=== PATIENT | female | born 1940 | race Caucasian/White ===

== ENCOUNTER 2019-02-03 11:29 | Inpatient (IN) | payer MEDICARE, OTHER ==
[~2019-02-03] VITALS: Ht 152.4 cm; Wt 88.1 kg
[2019-02-03] MEDS ORDERED: fentaNYL PF VIAL 100 MCG/2 ML VIAL IV ONE ×2 (12:15→13:45)
[2019-02-03 12:30] LABS: BASO # 0.1 x10^3/uL (0.0-0.2); BASO % 0 % (0-3); EOS % 0 % (0-3); HEMATOCRIT 34.3 % (36.0-47.0); HEMOGLOBIN 11.3 g/dL (12.0-15.5); LYMPH # 0.8 x10^3/uL (1.0-4.8); LYMPH % 6 % (24-48); MEAN CORPUSCULAR HEMOGLOBIN 31 pg (25-35); MEAN CORPUSCULAR HGB CONC 33 g/dL (31-37); MEAN CORPUSCULAR VOLUME 94 fL (79-100); MONO # 0.8 x10^3/uL (0.0-1.1); MONO % 6 % (0-9); NEUT # 11.7 x10^3/uL (1.8-7.7); NEUT % 88 % (31-73); PLATELET COUNT 220 x10^3/uL (140-400); RED BLOOD COUNT 3.64 x10^6/uL (3.50-5.40); RED CELL DISTRIBUTION WIDTH 14.4 % (11.5-14.5); WHITE BLOOD COUNT 13.4 x10^3/uL (4.0-11.0)
[2019-02-03 12:39] LABS: CALCIUM 7.5 mg/dL (8.5-10.1); CREATININE 1.3 mg/dL (0.6-1.0); GFR 39.5; POTASSIUM 4.9 mmol/L (3.5-5.1)
[2019-02-03 12:44] LABS: ALBUMIN 3.1 g/dL (3.4-5.0); ALBUMIN/GLOBULIN RATIO 0.8 (1.0-1.7); MAGNESIUM 1.1 mg/dL (1.8-2.4); TOTAL BILIRUBIN 0.8 mg/dL (0.2-1.0); TOTAL PROTEIN 7.1 g/dL (6.4-8.2); URIC ACID 8.2 mg/dL (2.6-6.0)
[2019-02-03 12:54] LABS: PROTHROMBIN TIME PATIENT 15.6 SEC (11.7-14.0)
--- NOTE | 2019-02-03 13:08 | PHYS DOC ---
Past Medical History Past Medical History: Arthritis, CVA, GERD, High Cholesterol, Hypertension, Stroke Additional Past Medical Histor: blood clots, gout Past Surgical History: Appendectomy, Cholecystectomy, Hysterectomy, Knee Replacement (R), Other (thyroidectomy, ) Alcohol Use: None Drug Use: None Adult General Chief Complaint Chief Complaint: LOWER EXT PAIN HPI HPI Patient is a 78 year old female who presents to the emergency room with complaints of increased redness, and swelling in her left leg over the last 2 days. She denies any recent injury. She states that the rash just below her knee she thought was poison jordana. She reports tat she has had gout of her right foot recently and was taken off of her hydrochlorothiazide because of that. She denies any shortness of breath, cough, abdominal pain, nausea, vomiting, diarrhea, chest pain, or palpitations. She states that the pain in both of her lower extremities is a 10 out of 10 on the pain scale, she denies any alleviating factors, the pain increases with palpation and movement. Review of Systems Review of Systems Constitutional: Denies fever or chills [] Eyes: Denies change in visual acuity, redness, or eye pain [] HENT: Denies nasal congestion or sore throat [] Respiratory: Denies cough or shortness of breath [] Cardiovascular: No additional information not addressed in HPI [] GI: Denies abdominal pain, nausea, vomiting, bloody or diarrhea [] : Denies dysuria or hematuria [] Musculoskeletal: Denies back pain; see HPI Integument: Denies rash or skin lesions [] Neurologic: Denies headache, focal weakness or sensory changes [] Endocrine: Denies polyuria or polydipsia [] Complete systems were reviewed and found to be within normal limits, except as documented in this note. Current Medications Current Medications Current Medications Medications (Trade) Dose Ordered Sig/Kehinde Start Time Stop Time Status Last Admin Dose Admin Cefazolin Sodium 50 ml @ 100 mls/hr 1X ONCE 02/03/19 13:45 02/03/19 14:14 DC 02/03/19 13:57 100 MLS/HR Fentanyl Citrate (Fentanyl 2ml Vial) 50 mcg 1X ONCE 02/03/19 13:45 02/03/19 13:46 DC 02/03/19 13:39 50 MCG Labetalol HCl (Normodyne Iv Push) 10 mg 1X ONCE 02/03/19 13:15 02/03/19 13:16 DC 02/03/19 13:22 10 MG Allergies Allergies Allergies Coded Allergies Type Severity Reaction Last Updated Verified alendronate sodium Allergy Intermediate 02/03/19 Yes Physical Exam Physical Exam Constitutional: Well developed, well nourished, no acute distress, non-toxic appearance. [] HENT: Normocephalic, atraumatic, bilateral external ears normal, oropharynx moist, no oral exudates, nose normal. [] Eyes: PERRLA, EOMI, conjunctiva normal, no discharge. [] Neck: Normal range of motion, no tenderness, supple, no stridor. [] Cardiovascular:Heart rate regular rhythm Lungs & Thorax: Bilateral breath sounds clear to auscultation [] Abdomen: soft, no tenderness, no masses, no pulsatile masses. [] Skin: Warm, dry, no rash; erythema and warmth noted to anterior LLE and to R great toe Back: No tenderness Extremities: Bilateral lower extremity TTP with 1-2+ edema present, no deformities, no cyanosis, no clubbing, ROM intact Neurologic: Alert and oriented X 3, normal motor function, normal sensory function, no focal deficits noted. [] Psychologic: Affect normal, judgement normal, mood normal. [] Current Patient Data Vital Signs Vital Signs Date Time Temp Pulse Resp B/P (MAP) Pulse Ox O2 Delivery O2 Flow Rate FiO2 02/03/19 14:24 16 02/03/19 13:40 93 172/70 (104) 98 Room Air 02/03/19 13:05 99.3 99.3 Lab Values Laboratory Tests Test 02/03/19 12:07 02/03/19 12:35 White Blood Count 13.4 x10^3/uL (4.0-11.0) H Red Blood Count 3.64 x10^6/uL (3.50-5.40) Hemoglobin 11.3 g/dL (12.0-15.5) L Hematocrit 34.3 % (36.0-47.0) L Mean Corpuscular Volume 94 fL (79-100) Mean Corpuscular Hemoglobin 31 pg (25-35) Mean Corpuscular Hemoglobin Concent 33 g/dL (31-37) Red Cell Distribution Width 14.4 % (11.5-14.5) Platelet Count 220 x10^3/uL (140-400) Neutrophils (%) (Auto) 88 % (31-73) H Lymphocytes (%) (Auto) 6 % (24-48) L Monocytes (%) (Auto) 6 % (0-9) Eosinophils (%) (Auto) 0 % (0-3) Basophils (%) (Auto) 0 % (0-3) Neutrophils # (Auto) 11.7 x10^3/uL (1.8-7.7) H Lymphocytes # (Auto) 0.8 x10^3/uL (1.0-4.8) L Monocytes # (Auto) 0.8 x10^3/uL (0.0-1.1) Eosinophils # (Auto) 0.0 x10^3/uL (0.0-0.7) Basophils # (Auto) 0.1 x10^3/uL (0.0-0.2) Segmented Neutrophils % 86 % (35-66) H Band Neutrophils % 1 % (0-9) Lymphocytes % 7 % (24-48) L Monocytes % 5 % (0-10) Basophils % 1 % (0-3) Platelet Estimate Adequate (ADEQUATE) Sodium Level 142 mmol/L (136-145) Potassium Level 4.9 mmol/L (3.5-5.1) Chloride Level 107 mmol/L (98-107) Carbon Dioxide Level 24 mmol/L (21-32) Anion Gap 11 (6-14) Blood Urea Nitrogen 27 mg/dL (7-20) H Creatinine 1.3 mg/dL (0.6-1.0) H Estimated GFR (Cockcroft-Gault) 39.5 BUN/Creatinine Ratio 21 (6-20) H Glucose Level 110 mg/dL (70-99) H Uric Acid 8.2 mg/dL (2.6-6.0) H Calcium Level 7.5 mg/dL (8.5-10.1) L Magnesium Level 1.1 mg/dL (1.8-2.4) L Total Bilirubin 0.8 mg/dL (0.2-1.0) Aspartate Amino Transferase (AST) 18 U/L (15-37) Alanine Aminotransferase (ALT) 16 U/L (14-59) Alkaline Phosphatase 63 U/L (46-116) PZ-Hbe-R-Type Natriuretic Peptide 3101 pg/mL (0-449) H Total Protein 7.1 g/dL (6.4-8.2) Albumin 3.1 g/dL (3.4-5.0) L Albumin/Globulin Ratio 0.8 (1.0-1.7) L Prothrombin Time 15.6 SEC (11.7-14.0) H Prothrombin Time INR 1.3 (0.8-1.1) H Activated Partial Thromboplast Time 32 SEC (24-38) Lactic Acid Level 1.4 mmol/L (0.4-2.0) Laboratory Tests 02/03/19 12:07 Laboratory Tests 02/03/19 12:07 EKG EKG 1312 SR rate 86, no STEMI read by Dr. Andrea[] Radiology/Procedures Radiology/Procedures PROCEDURE: VENOUS LOWER EXT BILATERAL Bilateral lower extremity venous doppler ultrasound History: Bilateral leg pain and swelling Comparison: None Findings: Multiple grayscale, color, and duplex spectral analysis sonographic images were acquired of the bilateral lower extremity veins to evaluate for the presence of DVT. There is normal phasicity. Normal compression, color-flow, and augmentation is demonstrated from the bilateral common femoral to the popliteal veins. There is normal color flow of the proximal greater saphenous and profunda femoris veins. There is normal color flow of segments of the calf veins. Impression: 1. There is no evidence of deep venous thrombosis from the bilateral common femoral to the popliteal veins. PROCEDURE: CHEST AP ONLY CHEST AP ONLY Clinical Indication: Cough Comparison: 07/11/2018 two-view chest x-ray exam. Findings: Portable upright frontal view of the chest was obtained. Patient is rotated limiting assessment of the left costophrenic angle region. The cardiomediastinal silhouette is normal. Lungs are clear. There is no pneumothorax. No pleural effusion is appreciated. No acute bone abnormality. IMPRESSION: No acute cardiopulmonary process. No definite infiltrate. Consider lateral view for more complete assessment if clinically desired. [] Course & Med Decision Making Course & Med Decision Making Pertinent Labs and Imaging studies reviewed. (See chart for details) Dx: LLE cellulitis, HTN, CHF, R foot gout, acute renal insufficiency PT was given 1 gm of Ancef IV in the ER for cellulitis. She was also given 2 doses of 50 mcg of fentanyl, and 10 mg of Labetalol in the ER. CBC: WBC 13.4, Hgb 11.3, Hct 34.3; CMP: BUN 27, Iron [employer]er Blasting 1.3, glucose 110, uric acid 8.2, Ca 8.2, Mg 1.1, BNP 3101, albumin 3.1 otherwise unremarkable BLE doppler negative for DVT, CXR no acute findings. EKG normal 1347- Dr. Andrea discussed pt with Dr. Spence will admit to med/tele [] Dragon Disclaimer Dragon Disclaimer This electronic medical record was generated, in whole or in part, using a voice recognition dictation system. Departure Departure Impression: Primary Impression: Cellulitis of left lower extremity Additional Impressions: Hypertension CHF (congestive heart failure) Gout of right foot Acute on chronic renal insufficiency Disposition: ADMITTED INPATIENT Admitting Physician: MI peng) Condition: STABLE Problem Qualifiers Additional Impressions: Hypertension Hypertension type: essential hypertension Qualified Codes: I10 - Essential (primary) hypertension CHF (congestive heart failure) Heart failure type: unspecified Heart failure chronicity: unspecified Qualified Codes: I50.9 - Heart failure, unspecified Gout of right foot Gout etiology: unspecified cause Chronicity: unspecified Qualified Codes: M10.9 - Gout, unspecified FRANDY ROSS [employer]PORATE COMPLIANCE DIRECTOR Feb 03, 2019 13:08
[2019-02-03 13:12] LABS: % BANDS 1 % (0-9); % BASOS 1 % (0-3); % LYMPHS 7 % (24-48); % MONOS 5 % (0-10); % SEGS 86 % (35-66); PLT ESTIMATE ADEQUATE (ADEQUATE)
[2019-02-03] MEDS ORDERED: LABETALOL 20 MG/4 ML DISP.SYRIN. IVP ONE ×2 (13:15→15:00)
--- NOTE | 2019-02-03 13:16 | RAD ---
Bilateral lower extremity venous doppler ultrasound History: Bilateral leg pain and swelling Comparison: None Findings: Multiple grayscale, color, and duplex spectral analysis sonographic images were acquired of the bilateral lower extremity veins to evaluate for the presence of DVT. There is normal phasicity. Normal compression, color-flow, and augmentation is demonstrated from the bilateral common femoral to the popliteal veins. There is normal color flow of the proximal greater saphenous and profunda femoris veins. There is normal color flow of segments of the calf veins. Impression: 1. There is no evidence of deep venous thrombosis from the bilateral common femoral to the popliteal veins. Electronically signed by: Ishaan Spear MD (02/03/2019 1:13 PM) [facility]
--- NOTE | 2019-02-03 14:28 | RAD ---
CHEST AP ONLY Clinical Indication: Cough Comparison: 07/11/2018 two-view chest x-ray exam. Findings: Portable upright frontal view of the chest was obtained. Patient is rotated limiting assessment of the left costophrenic angle region. The cardiomediastinal silhouette is normal. Lungs are clear. There is no pneumothorax. No pleural effusion is appreciated. No acute bone abnormality. IMPRESSION: No acute cardiopulmonary process. No definite infiltrate. Consider lateral view for more complete assessment if clinically desired. Electronically signed by: Michele Lindsey MD (02/03/2019 2:25 PM) [facility]
[2019-02-03] MEDS ORDERED: fentaNYL PF VIAL 100 MCG/2 ML VIAL IV PRN (14:45)
[2019-02-03] MEDS ORDERED: ONDANSETRON PF 4 MG/2 ML VIAL. IV PRN (14:45)
[2019-02-03] MEDS ORDERED: TEMAZEPAM 7.5 MG CAPSULE PO PRN (14:45)
[2019-02-03] MEDS ORDERED: ACETAMINOPHEN 500 MG TABLET PO PRN (14:45)
[2019-02-03] MEDS ORDERED: CALCIUM CARBONATE 500 MG TAB.CHEW PO PRN (14:45)
[2019-02-03] MEDS ORDERED: LABETALOL 20 MG/4 ML DISP.SYRIN. IVP PRN (14:45)
[2019-02-03] MEDS ORDERED: cloNIDine HCL 0.1 MG TABLET PO PRN (14:45)
[2019-02-03] MEDS ORDERED: MAGNESIUM SULFATE 4GM 100 ML IV ONE (15:00)
[2019-02-03] MEDS ORDERED: IV NORMAL SALINE 1000ML BAG 1,000 ML IV ONE (15:00)
--- NOTE | 2019-02-03 15:09 | PDOC1 ---
History and Physical Date of Admission Date of Admission DATE: 02/03/19 TIME: 15:00 Identification/Chief Complaint Chief Complaint rt big toe wound Source Source: Caregiver, Chart review, Patient History of Present Illness History of Present Illness VEry pleasant 78 obese female who actually looks younger than stated age, rt bog toe treated as gout by PCP maybe a week ago, celebrex, pred 6 mgs taper, Got better but recurred so back here, She also fell, lives in [place], and has skin tear rt knee, LAbs WBC 11 but was recently on steroids, Creat 1,3 on olmesartan and hCTZ that was stopped by PCP bec of DONALDO, NOn toxic appearing, cant bear weight on that leg, usually can, no open skin breaks on that big toe, good pulses. Uric acid elevated 8. Will give pred, nsaid, colcrys, hold off arb , ns x 1 L, CONTROL BP - systolic 190s, then after labetolol 10 180s DW RN Edwin and color checker roving or yarn ON warf at home, unknown why Past Medical History Cardiovascular: HTN Past Surgical History Past Surgical History: Total knee replacement Family History Family History: No Significant Social History Smoke: No ALCOHOL: none Drugs: None Current Problem List Problem List Problems Medical Problems: (1) Acute on chronic renal insufficiency Status: Acute (2) Cellulitis of left lower extremity Status: Acute (3) CHF (congestive heart failure) Status: Acute (4) Gout of right foot Status: Acute (5) Hypertension Status: Acute Current Medications Current Medications Current Medications Fentanyl Citrate (Fentanyl 2ml Vial) 50 mcg 1X ONCE IV Last administered on 02/03/19at 12:24; Start 02/03/19 at 12:15; Stop 02/03/19 at 12:16; Status DC Labetalol HCl (Normodyne Iv Push) 10 mg 1X ONCE IVP Last administered on 02/03/19at 13:22; Start 02/03/19 at 13:15; Stop 02/03/19 at 13:16; Status DC Fentanyl Citrate (Fentanyl 2ml Vial) 50 mcg 1X ONCE IV Last administered on 02/03/19at 13:39; Start 02/03/19 at 13:45; Stop 02/03/19 at 13:46; Status DC Cefazolin Sodium 50 ml @ 100 mls/hr 1X ONCE IV Last administered on 02/03/19at 13:57; Start 02/03/19 at 13:45; Stop 02/03/19 at 14:14; Status DC Magnesium Sulfate 100 ml @ 25 mls/hr 1X ONCE IV ; Start 02/03/19 at 15:00; Stop 02/03/19 at 18:59 Celecoxib (CeleBREX) 100 mg BID PO ; Start 02/03/19 at 15:00 Labetalol HCl (Normodyne Iv Push) 20 mg 1X ONCE IVP ; Start 02/03/19 at 15:00; Stop 02/03/19 at 15:01 Clonidine HCl (Catapres) 0.1 mg PRN Q1HR PRN PO HYPERTENSION; Start 02/03/19 at 14:45; Stop 02/03/19 at 14:54; Status DC Acetaminophen (Tylenol) 500 mg PRN Q6HRS PRN PO MILD PAIN / TEMP; Start 02/03/19 at 14:45 Acetaminophen/ Codeine Phosphate (Tylenol #3) 1 tab PRN Q6HRS PRN PO MODERATE PAIN; Start 02/03/19 at 14:45 Temazepam (Restoril) 7.5 mg PRN QHS PRN PO INSOMNIA; Start 02/03/19 at 14:45 Calcium Carbonate/ Glycine (Tums) 500 mg PRN AFTMEALHC PRN PO INDIGESTION; Start 02/03/19 at 14:45 Ondansetron HCl (Zofran) 4 mg PRN Q6HRS PRN IV NAUSEA/VOMITING; Start 02/03/19 at 14:45 Fentanyl Citrate (Fentanyl 2ml Vial) 25 mcg PRN Q2HR PRN IV PAIN; Start 02/03/19 at 14:45 Sodium Chloride 1,000 ml @ 100 mls/hr 1X ONCE IV ; Start 02/03/19 at 15:00; Stop 02/04/19 at 00:59 Labetalol HCl (Normodyne Iv Push) 10 mg PRN Q2HR PRN IVP HYPERTENSION; Start 02/03/19 at 14:45 Allergies Allergies: Coded Allergies: alendronate sodium (Verified Allergy, Intermediate, 02/03/19) ROS Review of System no fevers, as per hpi, rest 14 pt neg Physical Exam General: Alert, Oriented X3, Cooperative, No acute distress HEENT: Atraumatic, PERRLA, EOMI Lungs: Clear to auscultation, Normal air movement Heart: S1S2, RRR, no thrills, no rubs, no gallops, no murmurs Cardiovascular: S1, S2 Breasts: Normal, Rt breast nml w/o mass, Lt breast nml w/o mass, Nipples normal Abdomen: Normal bowel sounds, Soft, No tenderness, No hepatosplenomegaly, No masses Rectal Exam: not examined Extremities: No clubbing Skin: Other (rt big toe, swollen, mildly red, left knee skin tear) Neuro: Normal gait, Normal speech, Strength at 5/5 X4 ext, Normal tone, Sensation intact, Cranial nerves 3-12 NL, Reflexes 2+ Psych/Mental Status: Mental status NL, Mood NL Vitals Vitals Vital Signs Date Time Temp Pulse Resp B/P (MAP) Pulse Ox O2 Delivery O2 Flow Rate FiO2 02/03/19 14:24 16 02/03/19 13:40 93 172/70 (104) 98 Room Air 02/03/19 13:05 99.3 99.3 Labs Labs Laboratory Tests Test 02/03/19 12:07 02/03/19 12:35 White Blood Count 13.4 x10^3/uL (4.0-11.0) Red Blood Count 3.64 x10^6/uL (3.50-5.40) Hemoglobin 11.3 g/dL (12.0-15.5) Hematocrit 34.3 % (36.0-47.0) Mean Corpuscular Volume 94 fL (79-100) Mean Corpuscular Hemoglobin 31 pg (25-35) Mean Corpuscular Hemoglobin Concent 33 g/dL (31-37) Red Cell Distribution Width 14.4 % (11.5-14.5) Platelet Count 220 x10^3/uL (140-400) Neutrophils (%) (Auto) 88 % (31-73) Lymphocytes (%) (Auto) 6 % (24-48) Monocytes (%) (Auto) 6 % (0-9) Eosinophils (%) (Auto) 0 % (0-3) Basophils (%) (Auto) 0 % (0-3) Neutrophils # (Auto) 11.7 x10^3/uL (1.8-7.7) Lymphocytes # (Auto) 0.8 x10^3/uL (1.0-4.8) Monocytes # (Auto) 0.8 x10^3/uL (0.0-1.1) Eosinophils # (Auto) 0.0 x10^3/uL (0.0-0.7) Basophils # (Auto) 0.1 x10^3/uL (0.0-0.2) Segmented Neutrophils % 86 % (35-66) Band Neutrophils % 1 % (0-9) Lymphocytes % 7 % (24-48) Monocytes % 5 % (0-10) Basophils % 1 % (0-3) Platelet Estimate Adequate (ADEQUATE) Sodium Level 142 mmol/L (136-145) Potassium Level 4.9 mmol/L (3.5-5.1) Chloride Level 107 mmol/L (98-107) Carbon Dioxide Level 24 mmol/L (21-32) Anion Gap 11 (6-14) Blood Urea Nitrogen 27 mg/dL (7-20) Creatinine 1.3 mg/dL (0.6-1.0) Estimated GFR (Cockcroft-Gault) 39.5 BUN/Creatinine Ratio 21 (6-20) Glucose Level 110 mg/dL (70-99) Uric Acid 8.2 mg/dL (2.6-6.0) Calcium Level 7.5 mg/dL (8.5-10.1) Magnesium Level 1.1 mg/dL (1.8-2.4) Total Bilirubin 0.8 mg/dL (0.2-1.0) Aspartate Amino Transf (AST/SGOT) 18 U/L (15-37) Alanine Aminotransferase (ALT/SGPT) 16 U/L (14-59) Alkaline Phosphatase 63 U/L (46-116) KM-Tft-V-Type Natriuretic Peptide 3101 pg/mL (0-449) Total Protein 7.1 g/dL (6.4-8.2) Albumin 3.1 g/dL (3.4-5.0) Albumin/Globulin Ratio 0.8 (1.0-1.7) Prothrombin Time 15.6 SEC (11.7-14.0) Prothromb Time International Ratio 1.3 (0.8-1.1) Activated Partial Thromboplast Time 32 SEC (24-38) Lactic Acid Level 1.4 mmol/L (0.4-2.0) Laboratory Tests Test 02/03/19 12:02/03/19 12:35 White Blood Count 13.4 x10^3/uL (4.0-11.0) Red Blood Count 3.64 x10^6/uL (3.50-5.40) Hemoglobin 11.3 g/dL (12.0-15.5) Hematocrit 34.3 % (36.0-47.0) Mean Corpuscular Volume 94 fL (79-100) Mean Corpuscular Hemoglobin 31 pg (25-35) Mean Corpuscular Hemoglobin Concent 33 g/dL (31-37) Red Cell Distribution Width 14.4 % (11.5-14.5) Platelet Count 220 x10^3/uL (140-400) Neutrophils (%) (Auto) 88 % (31-73) Lymphocytes (%) (Auto) 6 % (24-48) Monocytes (%) (Auto) 6 % (0-9) Eosinophils (%) (Auto) 0 % (0-3) Basophils (%) (Auto) 0 % (0-3) Neutrophils # (Auto) 11.7 x10^3/uL (1.8-7.7) Lymphocytes # (Auto) 0.8 x10^3/uL (1.0-4.8) Monocytes # (Auto) 0.8 x10^3/uL (0.0-1.1) Eosinophils # (Auto) 0.0 x10^3/uL (0.0-0.7) Basophils # (Auto) 0.1 x10^3/uL (0.0-0.2) Segmented Neutrophils % 86 % (35-66) Band Neutrophils % 1 % (0-9) Lymphocytes % 7 % (24-48) Monocytes % 5 % (0-10) Basophils % 1 % (0-3) Platelet Estimate Adequate (ADEQUATE) Sodium Level 142 mmol/L (136-145) Potassium Level 4.9 mmol/L (3.5-5.1) Chloride Level 107 mmol/L (98-107) Carbon Dioxide Level 24 mmol/L (21-32) Anion Gap 11 (6-14) Blood Urea Nitrogen 27 mg/dL (7-20) Creatinine 1.3 mg/dL (0.6-1.0) Estimated GFR (Cockcroft-Gault) 39.5 BUN/Creatinine Ratio 21 (6-20) Glucose Level 110 mg/dL (70-99) Uric Acid 8.2 mg/dL (2.6-6.0) Calcium Level 7.5 mg/dL (8.5-10.1) Magnesium Level 1.1 mg/dL (1.8-2.4) Total Bilirubin 0.8 mg/dL (0.2-1.0) Aspartate Amino Transf (AST/SGOT) 18 U/L (15-37) Alanine Aminotransferase (ALT/SGPT) 16 U/L (14-59) Alkaline Phosphatase 63 U/L (46-116) KK-Fgd-D-Type Natriuretic Peptide 3101 pg/mL (0-449) Total Protein 7.1 g/dL (6.4-8.2) Albumin 3.1 g/dL (3.4-5.0) Albumin/Globulin Ratio 0.8 (1.0-1.7) Prothrombin Time 15.6 SEC (11.7-14.0) Prothromb Time International Ratio 1.3 (0.8-1.1) Activated Partial Thromboplast Time 32 SEC (24-38) Lactic Acid Level 1.4 mmol/L (0.4-2.0) VTE Prophylaxis Ordered VTE Prophylaxis Devices: Yes VTE Pharmacological Prophylaxi: Yes Assessment/Plan Assessment/Plan 1. Likely rt big toe gout with mild underlying cellulitis - colcrys, nsaid po pred- i added po abx since retreatment after being treated for gout, just to cover for infection but looks more inflammatory than infection 2. MEchanical fall in [place] with rt knee skin tear- bactroban, local wound care 3. Obesity 4 Accel HTN - resume home med, LAbetolol now then prn 5. SUbtherapeutic iNR (on warf) - unknown reason, ask her, pharmacy to assist with dosing 6. HYPERthyroid on tapazole- as per PCP, cpm 7. NO DVT, normal CXR 8. CKD, - creat 1.4 might be her baseline, PCP stopped her HCTZ - hold olmesartan, i okayed low dose celebrex FULL CODE MICHELLE THOMAS MD Feb 03, 2019 15:09
[2019-02-03 15:20] VITALS: BP 170/63
[2019-02-03] MEDS ORDERED: COLCHICINE 0.6 MG TABLET PO ONE (15:30)
[2019-02-03] MEDS ORDERED: AMOXICILLIN/K CLAV 500/125MG TABLET. PO SCH (16:00)
--- NOTE | 2019-02-03 16:18 | NUR ---
Pharmacy Warfarin Dosing Note S:Pharmacy consulted to assist with anticoagulation therapy started with target INR: 2 -3 O:LEOBARDO OMALLEY is a 78 year old F with DVT/PE H/O DVTs LABS: Last INR: 1.3 Last HGB: 11.3 Last HCT: 34.3 Last PLT: 220 Last dose of given on at Previous Regimen: 0.5mg daily Vitamin K given: Drug Interaction Changes: Ongoing Drug Interactions: A:INR of 1.3 is below desired range. Target range for this patient is: 2 -3 P: Warfarin dose: 1 mg Today at 1600 Bridge Therapy: None Next INR due 11/04/18. Pharmacy anticoagulation service will continue to follow. CAMDEN NEUMANN [facility], 02/03/19 [id number]
[2019-02-03] MEDS: predniSONE 20 MG TABLET PO SCH (16:57)
[2019-02-03] MEDS: CELECOXIB 100 MG CAPSULE. PO SCH ×2 (16:57→20:49)
[2019-02-03] MEDS ORDERED: WARFARIN 1 MG TABLET. PO ONE (17:00)
[2019-02-03] MEDS: MULTIVITAMIN with MINERAL TABLET. PO SCH (17:04)
[2019-02-03] MEDS: MUPIROCIN 2 % TOPICAL CREAM 30GM TUBE. TP SCH ×2 (17:04→20:49)
[2019-02-03] MEDS: ASCORBIC ACID 500 MG TABLET PO SCH (17:05)
[2019-02-03 19:00] VITALS: BP 141/104
[2019-02-03] MEDS: methIMAzole 10 MG TABLET PO SCH (19:21)
[2019-02-03] MEDS: ACETAMINOPHEN/CODEINE 300/30MG TABLET. PO PRN (19:21)
[2019-02-03] MEDS: METOPROLOL TART IMMED RELEASE 50 MG TABLET. PO SCH (20:49)
[2019-02-03] MEDS: SIMVASTATIN 20 MG TABLET PO SCH (20:49)
[2019-02-03 22:59] VITALS: BP 123/57
[2019-02-04] MEDS: ACETAMINOPHEN/CODEINE 300/30MG TABLET. PO PRN ×3 (02:17→23:08)
[2019-02-04 02:46] VITALS: BP 146/63
[2019-02-04 05:05] LABS: BASO % 0 % (0-3); EOS % 0 % (0-3); HEMATOCRIT 31.8 % (36.0-47.0); HEMOGLOBIN 10.5 g/dL (12.0-15.5); LYMPH # 0.3 x10^3/uL (1.0-4.8); LYMPH % 3 % (24-48); MEAN CORPUSCULAR HEMOGLOBIN 31 pg (25-35); MEAN CORPUSCULAR HGB CONC 33 g/dL (31-37); MEAN CORPUSCULAR VOLUME 95 fL (79-100); MONO # 0.2 x10^3/uL (0.0-1.1); MONO % 2 % (0-9); NEUT # 9.1 x10^3/uL (1.8-7.7); NEUT % 94 % (31-73); PLATELET COUNT 164 x10^3/uL (140-400); RED BLOOD COUNT 3.36 x10^6/uL (3.50-5.40); RED CELL DISTRIBUTION WIDTH 13.9 % (11.5-14.5); WHITE BLOOD COUNT 9.7 x10^3/uL (4.0-11.0)
[2019-02-04 05:12] LABS: PROTHROMBIN TIME PATIENT 16.3 SEC (11.7-14.0)
[2019-02-04 05:33] LABS: CALCIUM 7.3 mg/dL (8.5-10.1); CREATININE 1.4 mg/dL (0.6-1.0); GFR 36.3; MAGNESIUM 2.7 mg/dL (1.8-2.4); POTASSIUM 4.7 mmol/L (3.5-5.1)
[2019-02-04 06:45] VITALS: BP 151/92
--- NOTE | 2019-02-04 08:17 | PDOC ---
PROGRESS NOTES History of Present Illness History of Present Illness VTE Prophylaxis Ordered VTE Prophylaxis Devices: Yes VTE Pharmacological Prophylaxi: Yes Assessment/Plan 1. Likely rt big toe gout //cellulitis - colcrys, 2. MEchanical fall in [place] with rt knee skin tear- bactroban, local wound care 3. Obesity 4 Accel HTN - resume home med, iv LAbetolol prn 5. SUbtherapeutic iNR (on warf) - 6. HYPERthyroid on tapazole- as per PCP, 7. NO DVT, normal CXR no evidence of deep venous thrombosis from the bilateral common femoral to the popliteal veins. 8. CKD stage 3 , - creat 1.4 d/c celebrex 9. chf plan wound care, pt/ot fall precautions iv rocephin 1 gm q 24 hrs follow renal function dvt prophylaxis 28 min pt exam, chart review, > 50% of time spent with exam, chart review, pt care coordination Vitals Vitals Vital Signs Date Time Temp Pulse Resp B/P (MAP) Pulse Ox O2 Delivery O2 Flow Rate FiO2 02/04/19 06:45 98.0 84 18 151/92 (111) 95 Room Air 98.0 Physical Exam General: Alert, Oriented X3, Cooperative, No acute distress Heart: Regular rate Lungs: Clear Abdomen: Normal bowel sounds, Soft, No tenderness, No hepatosplenomegaly, No masses Extremities: No clubbing Skin: Other (rt big toe, swollen, mildly red, left knee skin tear) Labs LABS Bilateral lower extremity venous doppler ultrasound History: Bilateral leg pain and swelling Comparison: None Findings: Multiple grayscale, color, and duplex spectral analysis sonographic images were acquired of the bilateral lower extremity veins to evaluate for the presence of DVT. There is normal phasicity. Normal compression, color-flow, and augmentation is demonstrated from the bilateral common femoral to the popliteal veins. There is normal color flow of the proximal greater saphenous and profunda femoris veins. There is normal color flow of segments of the calf veins. Impression: 1. There is no evidence of deep venous thrombosis from the bilateral common femoral to the popliteal veins. Electronically signed by: Ishaan Spear MD (02/03/2019 1:13 PM) [facility] Laboratory Tests Test 02/03/19 12:07 02/03/19 12:35 02/04/19 04:10 02/04/19 04:15 White Blood Count 13.4 x10^3/uL (4.0-11.0) 9.7 x10^3/uL (4.0-11.0) Red Blood Count 3.64 x10^6/uL (3.50-5.40) 3.36 x10^6/uL (3.50-5.40) Hemoglobin 11.3 g/dL (12.0-15.5) 10.5 g/dL (12.0-15.5) Hematocrit 34.3 % (36.0-47.0) 31.8 % (36.0-47.0) Mean Corpuscular Volume 94 fL (79-100) 95 fL (79-100) Mean Corpuscular Hemoglobin 31 pg (25-35) 31 pg (25-35) Mean Corpuscular Hemoglobin Concent 33 g/dL (31-37) 33 g/dL (31-37) Red Cell Distribution Width 14.4 % (11.5-14.5) 13.9 % (11.5-14.5) Platelet Count 220 x10^3/uL (140-400) 164 x10^3/uL (140-400) Neutrophils (%) (Auto) 88 % (31-73) 94 % (31-73) Lymphocytes (%) (Auto) 6 % (24-48) 3 % (24-48) Monocytes (%) (Auto) 6 % (0-9) 2 % (0-9) Eosinophils (%) (Auto) 0 % (0-3) 0 % (0-3) Basophils (%) (Auto) 0 % (0-3) 0 % (0-3) Neutrophils # (Auto) 11.7 x10^3/uL (1.8-7.7) 9.1 x10^3/uL (1.8-7.7) Lymphocytes # (Auto) 0.8 x10^3/uL (1.0-4.8) 0.3 x10^3/uL (1.0-4.8) Monocytes # (Auto) 0.8 x10^3/uL (0.0-1.1) 0.2 x10^3/uL (0.0-1.1) Eosinophils # (Auto) 0.0 x10^3/uL (0.0-0.7) 0.0 x10^3/uL (0.0-0.7) Basophils # (Auto) 0.1 x10^3/uL (0.0-0.2) 0.0 x10^3/uL (0.0-0.2) Segmented Neutrophils % 86 % (35-66) Band Neutrophils % 1 % (0-9) Lymphocytes % 7 % (24-48) Monocytes % 5 % (0-10) Basophils % 1 % (0-3) Platelet Estimate Adequate (ADEQUATE) Erythrocyte Sedimentation Rate 77 (0-25) Sodium Level 142 mmol/L (136-145) 142 mmol/L (136-145) Potassium Level 4.9 mmol/L (3.5-5.1) 4.7 mmol/L (3.5-5.1) Chloride Level 107 mmol/L (98-107) 108 mmol/L (98-107) Carbon Dioxide Level 24 mmol/L (21-32) 22 mmol/L (21-32) Anion Gap 11 (6-14) 12 (6-14) Blood Urea Nitrogen 27 mg/dL (7-20) 28 mg/dL (7-20) Creatinine 1.3 mg/dL (0.6-1.0) 1.4 mg/dL (0.6-1.0) Estimated GFR (Cockcroft-Gault) 39.5 36.3 BUN/Creatinine Ratio 21 (6-20) Glucose Level 110 mg/dL (70-99) 200 mg/dL (70-99) Uric Acid 8.2 mg/dL (2.6-6.0) Calcium Level 7.5 mg/dL (8.5-10.1) 7.3 mg/dL (8.5-10.1) Magnesium Level 1.1 mg/dL (1.8-2.4) 2.7 mg/dL (1.8-2.4) Total Bilirubin 0.8 mg/dL (0.2-1.0) Aspartate Amino Transf (AST/SGOT) 18 U/L (15-37) Alanine Aminotransferase (ALT/SGPT) 16 U/L (14-59) Alkaline Phosphatase 63 U/L (46-116) MU-Zkh-S-Type Natriuretic Peptide 3101 pg/mL (0-449) Total Protein 7.1 g/dL (6.4-8.2) Albumin 3.1 g/dL (3.4-5.0) Albumin/Globulin Ratio 0.8 (1.0-1.7) Prothrombin Time 15.6 SEC (11.7-14.0) 16.3 SEC (11.7-14.0) Prothromb Time International Ratio 1.3 (0.8-1.1) 1.3 (0.8-1.1) Activated Partial Thromboplast Time 32 SEC (24-38) Lactic Acid Level 1.4 mmol/L (0.4-2.0) Assessment and Plan Assessmemt and Plan Problems Medical Problems: (1) Acute on chronic renal insufficiency Status: Acute (2) Cellulitis of left lower extremity Status: Acute (3) CHF (congestive heart failure) Status: Acute (4) Gout of right foot Status: Acute (5) Hypertension Status: Acute Comment Review of Relevant I have reviewed the following items grupo (where applicable) has been applied. Labs Laboratory Tests Test 02/03/19 12:07 02/03/19 12:35 02/04/19 04:10 02/04/19 04:15 White Blood Count 13.4 x10^3/uL (4.0-11.0) 9.7 x10^3/uL (4.0-11.0) Red Blood Count 3.64 x10^6/uL (3.50-5.40) 3.36 x10^6/uL (3.50-5.40) Hemoglobin 11.3 g/dL (12.0-15.5) 10.5 g/dL (12.0-15.5) Hematocrit 34.3 % (36.0-47.0) 31.8 % (36.0-47.0) Mean Corpuscular Volume 94 fL (79-100) 95 fL (79-100) Mean Corpuscular Hemoglobin 31 pg (25-35) 31 pg (25-35) Mean Corpuscular Hemoglobin Concent 33 g/dL (31-37) 33 g/dL (31-37) Red Cell Distribution Width 14.4 % (11.5-14.5) 13.9 % (11.5-14.5) Platelet Count 220 x10^3/uL (140-400) 164 x10^3/uL (140-400) Neutrophils (%) (Auto) 88 % (31-73) 94 % (31-73) Lymphocytes (%) (Auto) 6 % (24-48) 3 % (24-48) Monocytes (%) (Auto) 6 % (0-9) 2 % (0-9) Eosinophils (%) (Auto) 0 % (0-3) 0 % (0-3) Basophils (%) (Auto) 0 % (0-3) 0 % (0-3) Neutrophils # (Auto) 11.7 x10^3/uL (1.8-7.7) 9.1 x10^3/uL (1.8-7.7) Lymphocytes # (Auto) 0.8 x10^3/uL (1.0-4.8) 0.3 x10^3/uL (1.0-4.8) Monocytes # (Auto) 0.8 x10^3/uL (0.0-1.1) 0.2 x10^3/uL (0.0-1.1) Eosinophils # (Auto) 0.0 x10^3/uL (0.0-0.7) 0.0 x10^3/uL (0.0-0.7) Basophils # (Auto) 0.1 x10^3/uL (0.0-0.2) 0.0 x10^3/uL (0.0-0.2) Segmented Neutrophils % 86 % (35-66) Band Neutrophils % 1 % (0-9) Lymphocytes % 7 % (24-48) Monocytes % 5 % (0-10) Basophils % 1 % (0-3) Platelet Estimate Adequate (ADEQUATE) Erythrocyte Sedimentation Rate 77 (0-25) Sodium Level 142 mmol/L (136-145) 142 mmol/L (136-145) Potassium Level 4.9 mmol/L (3.5-5.1) 4.7 mmol/L (3.5-5.1) Chloride Level 107 mmol/L (98-107) 108 mmol/L (98-107) Carbon Dioxide Level 24 mmol/L (21-32) 22 mmol/L (21-32) Anion Gap 11 (6-14) 12 (6-14) Blood Urea Nitrogen 27 mg/dL (7-20) 28 mg/dL (7-20) Creatinine 1.3 mg/dL (0.6-1.0) 1.4 mg/dL (0.6-1.0) Estimated GFR (Cockcroft-Gault) 39.5 36.3 BUN/Creatinine Ratio 21 (6-20) Glucose Level 110 mg/dL (70-99) 200 mg/dL (70-99) Uric Acid 8.2 mg/dL (2.6-6.0) Calcium Level 7.5 mg/dL (8.5-10.1) 7.3 mg/dL (8.5-10.1) Magnesium Level 1.1 mg/dL (1.8-2.4) 2.7 mg/dL (1.8-2.4) Total Bilirubin 0.8 mg/dL (0.2-1.0) Aspartate Amino Transf (AST/SGOT) 18 U/L (15-37) Alanine Aminotransferase (ALT/SGPT) 16 U/L (14-59) Alkaline Phosphatase 63 U/L (46-116) OU-Igb-E-Type Natriuretic Peptide 3101 pg/mL (0-449) Total Protein 7.1 g/dL (6.4-8.2) Albumin 3.1 g/dL (3.4-5.0) Albumin/Globulin Ratio 0.8 (1.0-1.7) Prothrombin Time 15.6 SEC (11.7-14.0) 16.3 SEC (11.7-14.0) Prothromb Time International Ratio 1.3 (0.8-1.1) 1.3 (0.8-1.1) Activated Partial Thromboplast Time 32 SEC (24-38) Lactic Acid Level 1.4 mmol/L (0.4-2.0) Laboratory Tests Test 02/03/19 12:07 02/03/19 12:35 02/04/19 04:10 02/04/19 04:15 White Blood Count 13.4 x10^3/uL (4.0-11.0) 9.7 x10^3/uL (4.0-11.0) Red Blood Count 3.64 x10^6/uL (3.50-5.40) 3.36 x10^6/uL (3.50-5.40) Hemoglobin 11.3 g/dL (12.0-15.5) 10.5 g/dL (12.0-15.5) Hematocrit 34.3 % (36.0-47.0) 31.8 % (36.0-47.0) Mean Corpuscular Volume 94 fL (79-100) 95 fL (79-100) Mean Corpuscular Hemoglobin 31 pg (25-35) 31 pg (25-35) Mean Corpuscular Hemoglobin Concent 33 g/dL (31-37) 33 g/dL (31-37) Red Cell Distribution Width 14.4 % (11.5-14.5) 13.9 % (11.5-14.5) Platelet Count 220 x10^3/uL (140-400) 164 x10^3/uL (140-400) Neutrophils (%) (Auto) 88 % (31-73) 94 % (31-73) Lymphocytes (%) (Auto) 6 % (24-48) 3 % (24-48) Monocytes (%) (Auto) 6 % (0-9) 2 % (0-9) Eosinophils (%) (Auto) 0 % (0-3) 0 % (0-3) Basophils (%) (Auto) 0 % (0-3) 0 % (0-3) Neutrophils # (Auto) 11.7 x10^3/uL (1.8-7.7) 9.1 x10^3/uL (1.8-7.7) Lymphocytes # (Auto) 0.8 x10^3/uL (1.0-4.8) 0.3 x10^3/uL (1.0-4.8) Monocytes # (Auto) 0.8 x10^3/uL (0.0-1.1) 0.2 x10^3/uL (0.0-1.1) Eosinophils # (Auto) 0.0 x10^3/uL (0.0-0.7) 0.0 x10^3/uL (0.0-0.7) Basophils # (Auto) 0.1 x10^3/uL (0.0-0.2) 0.0 x10^3/uL (0.0-0.2) Segmented Neutrophils % 86 % (35-66) Band Neutrophils % 1 % (0-9) Lymphocytes % 7 % (24-48) Monocytes % 5 % (0-10) Basophils % 1 % (0-3) Platelet Estimate Adequate (ADEQUATE) Erythrocyte Sedimentation Rate 77 (0-25) Sodium Level 142 mmol/L (136-145) 142 mmol/L (136-145) Potassium Level 4.9 mmol/L (3.5-5.1) 4.7 mmol/L (3.5-5.1) Chloride Level 107 mmol/L (98-107) 108 mmol/L (98-107) Carbon Dioxide Level 24 mmol/L (21-32) 22 mmol/L (21-32) Anion Gap 11 (6-14) 12 (6-14) Blood Urea Nitrogen 27 mg/dL (7-20) 28 mg/dL (7-20) Creatinine 1.3 mg/dL (0.6-1.0) 1.4 mg/dL (0.6-1.0) Estimated GFR (Cockcroft-Gault) 39.5 36.3 BUN/Creatinine Ratio 21 (6-20) Glucose Level 110 mg/dL (70-99) 200 mg/dL (70-99) Uric Acid 8.2 mg/dL (2.6-6.0) Calcium Level 7.5 mg/dL (8.5-10.1) 7.3 mg/dL (8.5-10.1) Magnesium Level 1.1 mg/dL (1.8-2.4) 2.7 mg/dL (1.8-2.4) Total Bilirubin 0.8 mg/dL (0.2-1.0) Aspartate Amino Transf (AST/SGOT) 18 U/L (15-37) Alanine Aminotransferase (ALT/SGPT) 16 U/L (14-59) Alkaline Phosphatase 63 U/L (46-116) MS-Xkw-L-Type Natriuretic Peptide 3101 pg/mL (0-449) Total Protein 7.1 g/dL (6.4-8.2) Albumin 3.1 g/dL (3.4-5.0) Albumin/Globulin Ratio 0.8 (1.0-1.7) Prothrombin Time 15.6 SEC (11.7-14.0) 16.3 SEC (11.7-14.0) Prothromb Time International Ratio 1.3 (0.8-1.1) 1.3 (0.8-1.1) Activated Partial Thromboplast Time 32 SEC (24-38) Lactic Acid Level 1.4 mmol/L (0.4-2.0) Medications Current Medications Fentanyl Citrate (Fentanyl 2ml Vial) 50 mcg 1X ONCE IV Last administered on 02/03/19at 12:24; Start 02/03/19 at 12:15; Stop 02/03/19 at 12:16; Status DC Labetalol HCl (Normodyne Iv Push) 10 mg 1X ONCE IVP Last administered on 02/03/19at 13:22; Start 02/03/19 at 13:15; Stop 02/03/19 at 13:16; Status DC Fentanyl Citrate (Fentanyl 2ml Vial) 50 mcg 1X ONCE IV Last administered on 02/03/19at 13:39; Start 02/03/19 at 13:45; Stop 02/03/19 at 13:46; Status DC Cefazolin Sodium 50 ml @ 100 mls/hr 1X ONCE IV Last administered on 02/03/19at 13:57; Start 02/03/19 at 13:45; Stop 02/03/19 at 14:14; Status DC Magnesium Sulfate 100 ml @ 25 mls/hr 1X ONCE IV Last administered on 02/03/19at 17:07; Start 02/03/19 at 15:00; Stop 02/03/19 at 18:59; Status DC Celecoxib (CeleBREX) 100 mg BID PO Last administered on 02/03/19at 20:50; Start 02/03/19 at 15:00 Labetalol HCl (Normodyne Iv Push) 20 mg 1X ONCE IVP Last administered on 02/03/19at 17:07; Start 02/03/19 at 15:00; Stop 02/03/19 at 15:01; Status DC Clonidine HCl (Catapres) 0.1 mg PRN Q1HR PRN PO HYPERTENSION; Start 02/03/19 at 14:45; Stop 02/03/19 at 14:54; Status DC Acetaminophen (Tylenol) 500 mg PRN Q6HRS PRN PO MILD PAIN / TEMP; Start 02/03/19 at 14:45 Acetaminophen/ Codeine Phosphate (Tylenol #3) 1 tab PRN Q6HRS PRN PO MODERATE PAIN Last administered on 02/04/19at 02:17; Start 02/03/19 at 14:45 Temazepam (Restoril) 7.5 mg PRN QHS PRN PO INSOMNIA; Start 02/03/19 at 14:45 Calcium Carbonate/ Glycine (Tums) 500 mg PRN AFTMEALHC PRN PO INDIGESTION; Start 02/03/19 at 14:45 Ondansetron HCl (Zofran) 4 mg PRN Q6HRS PRN IV NAUSEA/VOMITING; Start 02/03/19 at 14:45 Fentanyl Citrate (Fentanyl 2ml Vial) 25 mcg PRN Q2HR PRN IV PAIN Last administered on 02/03/19at 17:07; Start 02/03/19 at 14:45 Sodium Chloride 1,000 ml @ 100 mls/hr 1X ONCE IV ; Start 02/03/19 at 15:00; Stop 02/03/19 at 15:01; Status DC Labetalol HCl (Normodyne Iv Push) 10 mg PRN Q2HR PRN IVP HYPERTENSION; Start 02/03/19 at 14:45 Colchicine (Colcrys) 0.6 mg DAILY PO ; Start 02/04/19 at 09:00 Colchicine (Colcrys) 1.2 mg 1X ONCE PO Last administered on 02/03/19at 17:07; Start 02/03/19 at 15:30; Stop 02/03/19 at 15:31; Status DC Prednisone (Prednisone) 40 mg DAILY PO Last administered on 02/03/19at 17:07; Start 02/03/19 at 15:30 Mupirocin (Bactroban) 1 amara TID TP Last administered on 02/03/19at 20:50; Start 02/03/19 at 15:30 Warfarin Sodium (Coumadin Per Pharmacy) 1 each PRN DAILY PRN MC SEE COMMENTS Last administered on 02/03/19at 16:18; Start 02/03/19 at 15:00 Amoxicillin/ Clavulanate Potassium (Augmentin 500/ 125mg) 1 tab BID PO ; Start 02/03/19 at 16:00; Stop 02/03/19 at 15:10; Status DC Warfarin Sodium (Coumadin) 1 mg 1X WARF ONCE PO Last administered on 02/03/19at 17:07; Start 02/03/19 at 17:00; Stop 02/03/19 at 17:01; Status DC Methimazole (Tapazole) 5 mg DAILY PO Last administered on 02/03/19at 19:22; Start 02/03/19 at 17:30 Metoprolol Tartrate (Lopressor) 50 mg BID PO Last administered on 02/03/19at 20:50; Start 02/03/19 at 21:00 Simvastatin (Zocor) 20 mg HS PO Last administered on 02/03/19at 20:50; Start 02/03/19 at 21:00 Ascorbic Acid (Vitamin C) 1,000 mg DAILY PO ; Start 02/03/19 at 17:30 Multivitamins (Thera M Plus) 1 tab DAILY PO ; Start 02/03/19 at 17:30 Vitals/I & O Vital Sign - Last 24 Hours 02/03/19 02/03/19 02/03/19 02/03/19 11:32 12:24 13:05 13:15 Temp 98.9 99.3 98.9 99.3 Pulse 96 83 Resp 16 16 16 16 B/P (MAP) 210/80 (123) 220/88 (132) Pulse Ox 98 98 98 O2 Delivery Room Air Room Air Room Air 02/03/19 02/03/19 02/03/19 02/03/19 13:22 13:39 13:40 14:24 Pulse 89 93 Resp 16 18 16 B/P (MAP) 197/93 172/70 (104) Pulse Ox 98 O2 Delivery Room Air 02/03/19 02/03/19 02/03/19 02/03/19 15:20 17:07 17:07 18:01 Temp 98.6 98.6 Pulse 102 102 Resp 20 B/P (MAP) 170/63 (98) 170/63 Pulse Ox 97 97 O2 Delivery Room Air Room Air 02/03/19 02/03/19 02/03/19 02/03/19 18:46 19:00 19:22 20:18 Temp 98.8 98.8 Pulse 91 Resp 20 B/P (MAP) 141/104 (116) Pulse Ox 94 97 O2 Delivery Room Air Room Air Room Air Room Air 02/03/19 02/03/19 02/03/19 02/04/19 20:30 20:50 22:59 02:17 Temp 98.1 98.1 Pulse 91 73 Resp 18 19 18 B/P (MAP) 141/104 123/57 (79) Pulse Ox 97 97 97 O2 Delivery Room Air Room Air Room Air 02/04/19 02/04/19 02/04/19 02:46 04:43 06:45 Temp 98.8 98.0 98.8 98.0 Pulse 74 84 Resp 18 18 B/P (MAP) 146/63 (90) 151/92 (111) Pulse Ox 98 98 95 O2 Delivery Room Air Room Air Room Air Intake and Output 02/03/19 02/03/19 02/04/19 14:59 22:59 06:59 Intake Total 300 ml Output Total 100 ml Balance 300 ml -100 ml GEO RINCON MD Feb 04, 2019 08:17
[2019-02-04] MEDS: methIMAzole 10 MG TABLET PO SCH (08:22)
[2019-02-04] MEDS: COLCHICINE 0.6 MG TABLET PO SCH (08:22)
[2019-02-04] MEDS: ASCORBIC ACID 500 MG TABLET PO SCH (08:23)
[2019-02-04] MEDS: MULTIVITAMIN with MINERAL TABLET. PO SCH (08:23)
[2019-02-04] MEDS: predniSONE 20 MG TABLET PO SCH (08:23)
[2019-02-04] MEDS: METOPROLOL TART IMMED RELEASE 50 MG TABLET. PO SCH ×2 (08:23→21:02)
[2019-02-04] MEDS: MUPIROCIN 2 % TOPICAL CREAM 30GM TUBE. TP SCH ×3 (08:24→21:01)
[2019-02-04 11:00] VITALS: BP_SYST 146; BP_SYST 156; BP_DIAS 49; BP_DIAS 80
--- NOTE | 2019-02-04 11:46 | NUR ---
Pharmacy Warfarin Dosing Note S: Pharmacy consulted to assist with anticoagulation therapy started O: LEOBARDO OMALLEY is a 78 year old F with H/O DVTs LABS: Last INR: 1.3 Last HGB: 10.5 Last HCT: 31.8 Last PLT: 164 Last dose of 1 mg given on 02/03/19 at 1656 A:INR of 1.3 is below desired range. Target range for this patient is: 2 -3 P: Warfarin dose: 1 mg Today at 1600 Bridge Therapy: Enoxaparin 40 mg q24h Next INR due 02/05/19 AM Pharmacy anticoagulation service will continue to follow. OMAR THOMPSON RPH, 02/04/19 1149
--- NOTE | 2019-02-04 13:17 | EKG ---
[facility] [address] [place] [address] Test Date: 2019-02-03 Test Time: 13:12:08 Pat Name: LEOBARDO OMALLEY Department: Room: Gender: F Data Steward: : 1940 Requested By: FRANDY ROSS Order Number: [id number] Reading MD: Measurements Intervals [place] Rate: 86 P: 27 IA: 180 QRS: 12 QRSD: 86 T: 30 QT: 372 QTc: 448 Interpretive Statements SINUS RHYTHM NORMAL ECG No previous ECG available for comparison
[2019-02-04] MEDS: cefTRIAXone IV Push 1 GM VIAL. IVP SCH (13:20)
[2019-02-04] MEDS: ENOXAPARIN 40 MG/0.4 ML SYRINGE. SQ SCH (13:20)
[2019-02-04] MEDS: NYSTATIN TOPICAL POWDER 15GM BOTTLE. TP SCH ×3 (13:55→21:03)
--- NOTE | 2019-02-04 15:10 | RAD ---
Examination: FOOT RIGHT 3V History: Foot pain Comparison/Correlation: None Findings: Total 3 images of the right foot were obtained. Degenerative joint space narrowing is noted involving interphalangeal joints. Subchondral degenerative change involving the first metatarsophalangeal joint. Degenerative changes of the basis of the third through fifth metatarsal bones identified. Moderate-sized calcaneal spur is present. Vascular calcifications noted. Impression: Osteopenia and degenerative change. No acute process. Electronically signed by: Michele Lindsey MD (02/04/2019 3:06 PM) [facility]
[2019-02-04] MEDS ORDERED: WARFARIN 1 MG TABLET. PO ONE (16:00)
[2019-02-04 17:00] VITALS: BP 188/83
[2019-02-04 19:00] VITALS: BP 135/54
[2019-02-04] MEDS: SIMVASTATIN 20 MG TABLET PO SCH (21:01)
[2019-02-04] MEDS: LACTOBACILLUS RHAMNOSUS GG 1 CAPSULE. PO SCH (21:01)
[2019-02-04 23:00] VITALS: BP 132/53
[2019-02-05] VITALS (7 sets, daily range): BP systolic 115–195; BP diastolic 38–99
[2019-02-05 07:50] LABS: BASO % 0 % (0-3); EOS % 0 % (0-3); HEMOGLOBIN 10.1 g/dL (12.0-15.5); LYMPH # 0.7 x10^3/uL (1.0-4.8); LYMPH % 6 % (24-48); MEAN CORPUSCULAR HEMOGLOBIN 31 pg (25-35); MEAN CORPUSCULAR HGB CONC 33 g/dL (31-37); MEAN CORPUSCULAR VOLUME 94 fL (79-100); MONO # 0.6 x10^3/uL (0.0-1.1); MONO % 5 % (0-9); NEUT % 89 % (31-73); PLATELET COUNT 186 x10^3/uL (140-400); RED BLOOD COUNT 3.29 x10^6/uL (3.50-5.40); WHITE BLOOD COUNT 11.2 x10^3/uL (4.0-11.0)
[2019-02-05 08:00] LABS: PROTHROMBIN TIME PATIENT 18.6 SEC (11.7-14.0)
[2019-02-05 08:10] LABS: CREATININE 1.5 mg/dL (0.6-1.0); GFR 33.5
--- NOTE | 2019-02-05 08:39 | PDOC ---
PROGRESS NOTES Chief Complaint Chief Complaint Likely rt big toe gout //cellulitis - colcrys, Mechanical fall in [place] with rt knee skin tear- bactroban, local wound care Obesity Accel HTN - resume home med, iv LAbetolol prn Subtherapeutic iNR (on warf) - HYPERthyroid on tapazole- as per PCP, NO DVT, normal CXR no evidence of deep venous thrombosis from the bilateral common femoral to the popliteal veins. CKD stage 3 , - creat 1.4 d/c celebrex Chronic diastolic chf plan wound care, pt/ot fall precautions iv rocephin 1 gm q 24 hrs follow renal function dvt prophylaxis 28 min pt exam, chart review, > 50% of time spent with exam, chart review, pt care coordination History of Present Illness History of Present Illness 78 obese female who actually looks younger than stated age, rt bog toe treated as gout by PCP maybe a week ago, celebrex, pred 6 mgs taper, Got better but recurred so back here, She also fell, lives in [place], and has skin tear left knee. On chronic warfarin for multiple bilateral DVTs. Having nausea with colchicine. Improved with zofran. Still with exquisite pain, unable to bear weight on her right foot. Bilateral ankle pain today. Vitals Vitals Vital Signs Date Time Temp Pulse Resp B/P (MAP) Pulse Ox O2 Delivery O2 Flow Rate FiO2 02/05/19 07:30 97.9 63 20 160/54 (89) 98 Room Air 97.9 Physical Exam General: Alert, Oriented X3, Cooperative, No acute distress Heart: Regular rate Lungs: Clear Abdomen: Normal bowel sounds, Soft, No tenderness, No hepatosplenomegaly, No masses Extremities: No clubbing Skin: Other (rt big toe, swollen, mildly red, left knee skin tear) Labs LABS Laboratory Tests Test 02/05/19 07:11 White Blood Count 11.2 x10^3/uL (4.0-11.0) Red Blood Count 3.29 x10^6/uL (3.50-5.40) Hemoglobin 10.1 g/dL (12.0-15.5) Hematocrit 31.0 % (36.0-47.0) Mean Corpuscular Volume 94 fL (79-100) Mean Corpuscular Hemoglobin 31 pg (25-35) Mean Corpuscular Hemoglobin Concent 33 g/dL (31-37) Red Cell Distribution Width 14.0 % (11.5-14.5) Platelet Count 186 x10^3/uL (140-400) Neutrophils (%) (Auto) 89 % (31-73) Lymphocytes (%) (Auto) 6 % (24-48) Monocytes (%) (Auto) 5 % (0-9) Eosinophils (%) (Auto) 0 % (0-3) Basophils (%) (Auto) 0 % (0-3) Neutrophils # (Auto) 10.0 x10^3/uL (1.8-7.7) Lymphocytes # (Auto) 0.7 x10^3/uL (1.0-4.8) Monocytes # (Auto) 0.6 x10^3/uL (0.0-1.1) Eosinophils # (Auto) 0.0 x10^3/uL (0.0-0.7) Basophils # (Auto) 0.0 x10^3/uL (0.0-0.2) Prothrombin Time 18.6 SEC (11.7-14.0) Prothromb Time International Ratio 1.6 (0.8-1.1) Sodium Level 145 mmol/L (136-145) Potassium Level 5.0 mmol/L (3.5-5.1) Chloride Level 111 mmol/L (98-107) Carbon Dioxide Level 25 mmol/L (21-32) Anion Gap 9 (6-14) Blood Urea Nitrogen 35 mg/dL (7-20) Creatinine 1.5 mg/dL (0.6-1.0) Estimated GFR (Cockcroft-Gault) 33.5 Glucose Level 96 mg/dL (70-99) Calcium Level 7.0 mg/dL (8.5-10.1) Assessment and Plan Assessmemt and Plan Problems Medical Problems: (1) Acute on chronic renal insufficiency Status: Acute (2) Cellulitis of left lower extremity Status: Acute (3) CHF (congestive heart failure) Status: Acute (4) Gout of right foot Status: Acute (5) Hypertension Status: Acute Comment Review of Relevant I have reviewed the following items grupo (where applicable) has been applied. Labs Laboratory Tests Test 02/03/19 12:07 02/03/19 12:35 02/04/19 04:10 02/04/19 04:15 White Blood Count 13.4 x10^3/uL (4.0-11.0) 9.7 x10^3/uL (4.0-11.0) Red Blood Count 3.64 x10^6/uL (3.50-5.40) 3.36 x10^6/uL (3.50-5.40) Hemoglobin 11.3 g/dL (12.0-15.5) 10.5 g/dL (12.0-15.5) Hematocrit 34.3 % (36.0-47.0) 31.8 % (36.0-47.0) Mean Corpuscular Volume 94 fL (79-100) 95 fL (79-100) Mean Corpuscular Hemoglobin 31 pg (25-35) 31 pg (25-35) Mean Corpuscular Hemoglobin Concent 33 g/dL (31-37) 33 g/dL (31-37) Red Cell Distribution Width 14.4 % (11.5-14.5) 13.9 % (11.5-14.5) Platelet Count 220 x10^3/uL (140-400) 164 x10^3/uL (140-400) Neutrophils (%) (Auto) 88 % (31-73) 94 % (31-73) Lymphocytes (%) (Auto) 6 % (24-48) 3 % (24-48) Monocytes (%) (Auto) 6 % (0-9) 2 % (0-9) Eosinophils (%) (Auto) 0 % (0-3) 0 % (0-3) Basophils (%) (Auto) 0 % (0-3) 0 % (0-3) Neutrophils # (Auto) 11.7 x10^3/uL (1.8-7.7) 9.1 x10^3/uL (1.8-7.7) Lymphocytes # (Auto) 0.8 x10^3/uL (1.0-4.8) 0.3 x10^3/uL (1.0-4.8) Monocytes # (Auto) 0.8 x10^3/uL (0.0-1.1) 0.2 x10^3/uL (0.0-1.1) Eosinophils # (Auto) 0.0 x10^3/uL (0.0-0.7) 0.0 x10^3/uL (0.0-0.7) Basophils # (Auto) 0.1 x10^3/uL (0.0-0.2) 0.0 x10^3/uL (0.0-0.2) Segmented Neutrophils % 86 % (35-66) Band Neutrophils % 1 % (0-9) Lymphocytes % 7 % (24-48) Monocytes % 5 % (0-10) Basophils % 1 % (0-3) Platelet Estimate Adequate (ADEQUATE) Erythrocyte Sedimentation Rate 77 (0-25) Sodium Level 142 mmol/L (136-145) 142 mmol/L (136-145) Potassium Level 4.9 mmol/L (3.5-5.1) 4.7 mmol/L (3.5-5.1) Chloride Level 107 mmol/L (98-107) 108 mmol/L (98-107) Carbon Dioxide Level 24 mmol/L (21-32) 22 mmol/L (21-32) Anion Gap 11 (6-14) 12 (6-14) Blood Urea Nitrogen 27 mg/dL (7-20) 28 mg/dL (7-20) Creatinine 1.3 mg/dL (0.6-1.0) 1.4 mg/dL (0.6-1.0) Estimated GFR (Cockcroft-Gault) 39.5 36.3 BUN/Creatinine Ratio 21 (6-20) Glucose Level 110 mg/dL (70-99) 200 mg/dL (70-99) Uric Acid 8.2 mg/dL (2.6-6.0) 8.3 mg/dL (2.6-6.0) Calcium Level 7.5 mg/dL (8.5-10.1) 7.3 mg/dL (8.5-10.1) Magnesium Level 1.1 mg/dL (1.8-2.4) 2.7 mg/dL (1.8-2.4) Total Bilirubin 0.8 mg/dL (0.2-1.0) Aspartate Amino Transf (AST/SGOT) 18 U/L (15-37) Alanine Aminotransferase (ALT/SGPT) 16 U/L (14-59) Alkaline Phosphatase 63 U/L (46-116) QS-Rbg-A-Type Natriuretic Peptide 3101 pg/mL (0-449) Total Protein 7.1 g/dL (6.4-8.2) Albumin 3.1 g/dL (3.4-5.0) Albumin/Globulin Ratio 0.8 (1.0-1.7) Prothrombin Time 15.6 SEC (11.7-14.0) 16.3 SEC (11.7-14.0) Prothromb Time International Ratio 1.3 (0.8-1.1) 1.3 (0.8-1.1) Activated Partial Thromboplast Time 32 SEC (24-38) Lactic Acid Level 1.4 mmol/L (0.4-2.0) Test 02/05/19 07:11 White Blood Count 11.2 x10^3/uL (4.0-11.0) Red Blood Count 3.29 x10^6/uL (3.50-5.40) Hemoglobin 10.1 g/dL (12.0-15.5) Hematocrit 31.0 % (36.0-47.0) Mean Corpuscular Volume 94 fL (79-100) Mean Corpuscular Hemoglobin 31 pg (25-35) Mean Corpuscular Hemoglobin Concent 33 g/dL (31-37) Red Cell Distribution Width 14.0 % (11.5-14.5) Platelet Count 186 x10^3/uL (140-400) Neutrophils (%) (Auto) 89 % (31-73) Lymphocytes (%) (Auto) 6 % (24-48) Monocytes (%) (Auto) 5 % (0-9) Eosinophils (%) (Auto) 0 % (0-3) Basophils (%) (Auto) 0 % (0-3) Neutrophils # (Auto) 10.0 x10^3/uL (1.8-7.7) Lymphocytes # (Auto) 0.7 x10^3/uL (1.0-4.8) Monocytes # (Auto) 0.6 x10^3/uL (0.0-1.1) Eosinophils # (Auto) 0.0 x10^3/uL (0.0-0.7) Basophils # (Auto) 0.0 x10^3/uL (0.0-0.2) Prothrombin Time 18.6 SEC (11.7-14.0) Prothromb Time International Ratio 1.6 (0.8-1.1) Sodium Level 145 mmol/L (136-145) Potassium Level 5.0 mmol/L (3.5-5.1) Chloride Level 111 mmol/L (98-107) Carbon Dioxide Level 25 mmol/L (21-32) Anion Gap 9 (6-14) Blood Urea Nitrogen 35 mg/dL (7-20) Creatinine 1.5 mg/dL (0.6-1.0) Estimated GFR (Cockcroft-Gault) 33.5 Glucose Level 96 mg/dL (70-99) Calcium Level 7.0 mg/dL (8.5-10.1) Laboratory Tests Test 02/05/19 07:11 White Blood Count 11.2 x10^3/uL (4.0-11.0) Red Blood Count 3.29 x10^6/uL (3.50-5.40) Hemoglobin 10.1 g/dL (12.0-15.5) Hematocrit 31.0 % (36.0-47.0) Mean Corpuscular Volume 94 fL (79-100) Mean Corpuscular Hemoglobin 31 pg (25-35) Mean Corpuscular Hemoglobin Concent 33 g/dL (31-37) Red Cell Distribution Width 14.0 % (11.5-14.5) Platelet Count 186 x10^3/uL (140-400) Neutrophils (%) (Auto) 89 % (31-73) Lymphocytes (%) (Auto) 6 % (24-48) Monocytes (%) (Auto) 5 % (0-9) Eosinophils (%) (Auto) 0 % (0-3) Basophils (%) (Auto) 0 % (0-3) Neutrophils # (Auto) 10.0 x10^3/uL (1.8-7.7) Lymphocytes # (Auto) 0.7 x10^3/uL (1.0-4.8) Monocytes # (Auto) 0.6 x10^3/uL (0.0-1.1) Eosinophils # (Auto) 0.0 x10^3/uL (0.0-0.7) Basophils # (Auto) 0.0 x10^3/uL (0.0-0.2) Prothrombin Time 18.6 SEC (11.7-14.0) Prothromb Time International Ratio 1.6 (0.8-1.1) Sodium Level 145 mmol/L (136-145) Potassium Level 5.0 mmol/L (3.5-5.1) Chloride Level 111 mmol/L (98-107) Carbon Dioxide Level 25 mmol/L (21-32) Anion Gap 9 (6-14) Blood Urea Nitrogen 35 mg/dL (7-20) Creatinine 1.5 mg/dL (0.6-1.0) Estimated GFR (Cockcroft-Gault) 33.5 Glucose Level 96 mg/dL (70-99) Calcium Level 7.0 mg/dL (8.5-10.1) Medications Current Medications Fentanyl Citrate (Fentanyl 2ml Vial) 50 mcg 1X ONCE IV Last administered on 02/03/19at 12:24; Start 02/03/19 at 12:15; Stop 02/03/19 at 12:16; Status DC Labetalol HCl (Normodyne Iv Push) 10 mg 1X ONCE IVP Last administered on 02/03/19at 13:22; Start 02/03/19 at 13:15; Stop 02/03/19 at 13:16; Status DC Fentanyl Citrate (Fentanyl 2ml Vial) 50 mcg 1X ONCE IV Last administered on 02/03/19at 13:39; Start 02/03/19 at 13:45; Stop 02/03/19 at 13:46; Status DC Cefazolin Sodium 50 ml @ 100 mls/hr 1X ONCE IV Last administered on 02/03/19at 13:57; Start 02/03/19 at 13:45; Stop 02/03/19 at 14:14; Status DC Magnesium Sulfate 100 ml @ 25 mls/hr 1X ONCE IV Last administered on 02/03/19at 17:07; Start 02/03/19 at 15:00; Stop 02/03/19 at 18:59; Status DC Celecoxib (CeleBREX) 100 mg BID PO Last administered on 02/03/19at 20:50; Start 02/03/19 at 15:00; Stop 02/04/19 at 08:18; Status DC Labetalol HCl (Normodyne Iv Push) 20 mg 1X ONCE IVP Last administered on 02/03/19at 17:07; Start 02/03/19 at 15:00; Stop 02/03/19 at 15:01; Status DC Clonidine HCl (Catapres) 0.1 mg PRN Q1HR PRN PO HYPERTENSION; Start 02/03/19 at 14:45; Stop 02/03/19 at 14:54; Status DC Acetaminophen (Tylenol) 500 mg PRN Q6HRS PRN PO MILD PAIN / TEMP; Start 02/03/19 at 14:45 Acetaminophen/ Codeine Phosphate (Tylenol #3) 1 tab PRN Q6HRS PRN PO MODERATE PAIN Last administered on 02/04/19at 23:08; Start 02/03/19 at 14:45 Temazepam (Restoril) 7.5 mg PRN QHS PRN PO INSOMNIA; Start 02/03/19 at 14:45 Calcium Carbonate/ Glycine (Tums) 500 mg PRN AFTMEALHC PRN PO INDIGESTION; Start 02/03/19 at 14:45 Ondansetron HCl (Zofran) 4 mg PRN Q6HRS PRN IV NAUSEA/VOMITING Last administered on 02/04/19at 10:10; Start 02/03/19 at 14:45 Fentanyl Citrate (Fentanyl 2ml Vial) 25 mcg PRN Q2HR PRN IV PAIN Last administered on 02/03/19at 17:07; Start 02/03/19 at 14:45 Sodium Chloride 1,000 ml @ 100 mls/hr 1X ONCE IV ; Start 02/03/19 at 15:00; Stop 02/03/19 at 15:01; Status DC Labetalol HCl (Normodyne Iv Push) 10 mg PRN Q2HR PRN IVP HYPERTENSION; Start 02/03/19 at 14:45 Colchicine (Colcrys) 0.6 mg DAILY PO Last administered on 02/04/19at 08:24; Start 02/04/19 at 09:00 Colchicine (Colcrys) 1.2 mg 1X ONCE PO Last administered on 02/03/19at 17:07; Start 02/03/19 at 15:30; Stop 02/03/19 at 15:31; Status DC Prednisone (Prednisone) 40 mg DAILY PO Last administered on 02/04/19at 08:24; Start 02/03/19 at 15:30 Mupirocin (Bactroban) 1 amara TID TP Last administered on 02/04/19 21:03; Start 02/03/19 at 15:30 Warfarin Sodium (Coumadin Per Pharmacy) 1 each PRN DAILY PRN MC SEE COMMENTS Last administered on 02/04/19at 11:45; Start 02/03/19 at 15:00 Amoxicillin/ Clavulanate Potassium (Augmentin 500/ 125mg) 1 tab BID PO ; Start 02/03/19 at 16:00; Stop 02/03/19 at 15:10; Status DC Warfarin Sodium (Coumadin) 1 mg 1X WARF ONCE PO Last administered on 02/03/19 17:07; Start 02/03/19 at 17:00; Stop 02/03/19 at 17:01; Status DC Methimazole (Tapazole) 5 mg DAILY PO Last administered on 02/04/19 08:24; Start 02/03/19 at 17:30 Metoprolol Tartrate (Lopressor) 50 mg BID PO Last administered on 02/04/19 21:03; Start 02/03/19 at 21:00 Simvastatin (Zocor) 20 mg HS PO Last administered on 02/04/19 21:03; Start 02/03/19 at 21:00 Ascorbic Acid (Vitamin C) 1,000 mg DAILY PO Last administered on 02/04/19 08:24; Start 02/03/19 at 17:30 Multivitamins (Thera M Plus) 1 tab DAILY PO Last administered on 02/04/19 08:24; Start 02/03/19 at 17:30 Ceftriaxone Sodium (Rocephin) 1 gm Q24H IVP Last administered on 02/04/19 13:29; Start 02/04/19 at 12:00 Enoxaparin Sodium (Lovenox 40mg Syringe) 40 mg Q24H SQ Last administered on 02/04/19 13:29; Start 02/04/19 at 12:00 Warfarin Sodium (Coumadin) 1 mg 1X WARF ONCE PO Last administered on 02/04/19 16:49; Start 02/04/19 at 16:00; Stop 02/04/19 at 16:01; Status DC Lactobacillus Rhamnosus (Culturelle) 1 cap BID PO Last administered on 02/04/19 21:03; Start 02/04/19 at 21:00 Nystatin (Nystop) 1 amara QID TP Last administered on 02/04/19at 21:03; Start 02/04/19 at 14:00 Vitals/I & O Vital Sign - Last 24 Hours 02/04/19 02/04/19 02/04/19 02/04/19 11:00 16:49 17:00 18:11 Temp 98.4 97.9 98.4 97.9 Pulse 65 70 Resp 20 20 B/P (MAP) 146/49 (81) 188/83 (118) Pulse Ox 96 96 97 97 O2 Delivery Room Air Room Air Room Air Room Air 02/04/19 02/04/19 02/04/19 02/04/19 19:00 20:01 21:03 23:00 Temp 98.2 97.7 98.2 97.7 Pulse 73 73 73 Resp 16 16 B/P (MAP) 135/54 (81) 135/54 132/53 (79) Pulse Ox 96 98 O2 Delivery Room Air Room Air Room Air 02/04/19 02/05/19 02/05/19 02/05/19 23:08 00:23 03:00 07:30 Temp 98.6 97.9 98.6 97.9 Pulse 67 63 Resp 16 16 20 B/P (MAP) 115/38 (63) 160/54 (89) Pulse Ox 96 96 97 98 O2 Delivery Room Air Room Air Room Air Room Air Intake and Output 02/04/19 02/04/19 02/05/19 14:59 22:59 06:59 Intake Total 300 ml Balance 300 ml GISELE FRANCOIS MD Feb 05, 2019 08:39
[2019-02-05] MEDS: PANTOPRAZOLE 40 MG TABLET.DR. PO SCH (08:58)
[2019-02-05] MEDS: methIMAzole 10 MG TABLET PO SCH (08:58)
[2019-02-05] MEDS: LACTOBACILLUS RHAMNOSUS GG 1 CAPSULE. PO SCH ×2 (08:59→20:55)
[2019-02-05] MEDS: ONDANSETRON PF 4 MG/2 ML VIAL. IV PRN (08:59)
[2019-02-05] MEDS: predniSONE 20 MG TABLET PO SCH (09:00)
[2019-02-05] MEDS: ASCORBIC ACID 500 MG TABLET PO SCH (09:00)
[2019-02-05] MEDS: METOPROLOL TART IMMED RELEASE 50 MG TABLET. PO SCH ×2 (09:00→20:55)
[2019-02-05] MEDS: MULTIVITAMIN with MINERAL TABLET. PO SCH (09:00)
[2019-02-05] MEDS: COLCHICINE 0.6 MG TABLET PO SCH (09:00)
[2019-02-05] MEDS: NYSTATIN TOPICAL POWDER 15GM BOTTLE. TP SCH ×4 (09:01→20:55)
[2019-02-05] MEDS: ENOXAPARIN 40 MG/0.4 ML SYRINGE. SQ SCH (09:01)
[2019-02-05] MEDS: MUPIROCIN 2 % TOPICAL CREAM 30GM TUBE. TP SCH ×3 (09:02→20:55)
--- NOTE | 2019-02-05 11:36 | NUR ---
Pharmacy Warfarin Dosing Note S: Pharmacy consulted to assist with anticoagulation therapy started O: LEOBARDO OMALLEY is a 78 year old F with H/O DVTs Last INR: 1.6 Last HGB: 10.1 Last HCT: 31.0 Last PLT: 186 Last dose of 1 mg given on 02/04/19 at 1649 A:INR of 1.6 is below desired range. Target range for this patient is: 2 -3 P: Warfarin dose: 1 mg Today at 1600 Bridge Therapy: Enoxaparin 40 mg q24h Next INR due 02/06/19 AM Pharmacy anticoagulation service will continue to follow. OMAR THOMPSON [facility], 02/05/19 0018
[2019-02-05] MEDS: ACETAMINOPHEN/CODEINE 300/30MG TABLET. PO PRN ×2 (12:57→23:05)
[2019-02-05] MEDS: cefTRIAXone IV Push 1 GM VIAL. IVP SCH (12:57)
--- NOTE | 2019-02-05 14:20 | NUR ---
Wound Care WOund care consult for skin tear to left knee. Pt has no open wounds at this time. Pt has yeasty rash under pannus, nystatin powder recommended. WC will sign off, please reconsult if new wounds develop.
--- NOTE | 2019-02-05 15:56 | NUR ---
SW following pt for dc planning. Chart reviewed and d/w RN, Physician. Pt lives at [facility], , fax: [phone]. PT recommends Home health, OT recommends [facility] but pt did not participate with grooming/toileting. Per RN, Pt had completed grooming with [employer] today. SW spoke with pt and pt reports she has been living at [facility] and enjoys living there. Pt has formed good relationships at facility and has necessary DME. Discussed regarding home health options ([facility], [facility]) and pt reported she had heard about [facility] from her friend at her facility and would like to use them as well. Plan 1. SW phoned and faxed referral to [facility], Phone; [phone], fax: [phone]. 2. Anticipate pt will dc tomorrow with Addie . Will continue to follow. Addendum: 02/05/19 at 1606 by ROSENDA ABBOTT Updates faxed to [facility] and notified them pt is a possible discharge tomorrow.
[2019-02-05] MEDS ORDERED: WARFARIN 1 MG TABLET. PO ONE (16:00)
[2019-02-05] MEDS: SIMVASTATIN 20 MG TABLET PO SCH (20:55)
[2019-02-06 03:35] VITALS: BP 179/68
[2019-02-06 04:49] LABS: PROTHROMBIN TIME PATIENT 18.9 SEC (11.7-14.0)
[2019-02-06] MEDS: PANTOPRAZOLE 40 MG TABLET.DR. PO SCH (05:58)
[2019-02-06 07:54] VITALS: BP 168/59
--- NOTE | 2019-02-06 09:24 | PDOC ---
PROGRESS NOTES Chief Complaint Chief Complaint Likely rt big toe gout //cellulitis - colcrys, [place] with rt knee skin tear- bactroban, local wound care Obesity Accel HTN - resume home med, iv LAbetolol prn Subtherapeutic iNR (on warf) - HYPERthyroid on tapazole- as per PCP, NO DVT, normal CXR no evidence of deep venous thrombosis from the bilateral common femoral to the popliteal veins. CKD stage 3 , - creat 1.4 d/c celebrex Chronic diastolic chf plan wound care, pt/ot fall precautions iv rocephin 1 gm q 24 hrs follow renal function dvt prophylaxis 28 min pt exam, chart review, > 50% of time spent with exam, chart review, pt care coordination History of Present Illness History of Present Illness Ms Tilley is a 78 obese female who actually looks younger than stated age, rt bog toe treated as gout by PCP maybe a week ago, celebrex, pred 6 mgs taper, Got better but recurred so back here, She also fell, lives in [place], and has skin tear left knee. On chronic warfarin for multiple bilateral DVTs. Having nausea with colchicine. Improved with zofran. Still with pain able to bear weight on her right foot. Bilateral ankle pain today. Wants home health per PT and OT recommendations. Vitals Vitals Vital Signs Date Time Temp Pulse Resp B/P (MAP) Pulse Ox O2 Delivery O2 Flow Rate FiO2 02/06/19 07:54 97.4 65 18 168/59 (95) 99 Room Air 97.4 Physical Exam General: Alert, Oriented X3, Cooperative, No acute distress Heart: Regular rate Lungs: Clear Abdomen: Normal bowel sounds, Soft, No tenderness, No hepatosplenomegaly, No masses Extremities: No clubbing Skin: Other (rt big toe, swollen, mildly red, left knee skin tear) Labs LABS Laboratory Tests Test 02/06/19 04:15 Prothrombin Time 18.9 SEC (11.7-14.0) Prothromb Time International Ratio 1.6 (0.8-1.1) Assessment and Plan Assessmemt and Plan Problems Medical Problems: (1) Acute on chronic renal insufficiency Status: Acute (2) Cellulitis of left lower extremity Status: Acute (3) CHF (congestive heart failure) Status: Acute (4) Gout of right foot Status: Acute (5) Hypertension Status: Acute Comment Review of Relevant I have reviewed the following items grupo (where applicable) has been applied. Labs Laboratory Tests Test 02/05/19 07:11 02/06/19 04:15 White Blood Count 11.2 x10^3/uL (4.0-11.0) Red Blood Count 3.29 x10^6/uL (3.50-5.40) Hemoglobin 10.1 g/dL (12.0-15.5) Hematocrit 31.0 % (36.0-47.0) Mean Corpuscular Volume 94 fL (79-100) Mean Corpuscular Hemoglobin 31 pg (25-35) Mean Corpuscular Hemoglobin Concent 33 g/dL (31-37) Red Cell Distribution Width 14.0 % (11.5-14.5) Platelet Count 186 x10^3/uL (140-400) Neutrophils (%) (Auto) 89 % (31-73) Lymphocytes (%) (Auto) 6 % (24-48) Monocytes (%) (Auto) 5 % (0-9) Eosinophils (%) (Auto) 0 % (0-3) Basophils (%) (Auto) 0 % (0-3) Neutrophils # (Auto) 10.0 x10^3/uL (1.8-7.7) Lymphocytes # (Auto) 0.7 x10^3/uL (1.0-4.8) Monocytes # (Auto) 0.6 x10^3/uL (0.0-1.1) Eosinophils # (Auto) 0.0 x10^3/uL (0.0-0.7) Basophils # (Auto) 0.0 x10^3/uL (0.0-0.2) Prothrombin Time 18.6 SEC (11.7-14.0) 18.9 SEC (11.7-14.0) Prothromb Time International Ratio 1.6 (0.8-1.1) 1.6 (0.8-1.1) Sodium Level 145 mmol/L (136-145) Potassium Level 5.0 mmol/L (3.5-5.1) Chloride Level 111 mmol/L (98-107) Carbon Dioxide Level 25 mmol/L (21-32) Anion Gap 9 (6-14) Blood Urea Nitrogen 35 mg/dL (7-20) Creatinine 1.5 mg/dL (0.6-1.0) Estimated GFR (Cockcroft-Gault) 33.5 Glucose Level 96 mg/dL (70-99) Calcium Level 7.0 mg/dL (8.5-10.1) Anti-Streptolysin O Antibody 46.9 IU/mL (0.0-200.0) Laboratory Tests Test 02/06/19 04:15 Prothrombin Time 18.9 SEC (11.7-14.0) Prothromb Time International Ratio 1.6 (0.8-1.1) Medications Current Medications Fentanyl Citrate (Fentanyl 2ml Vial) 50 mcg 1X ONCE IV Last administered on 02/03/19at 12:24; Start 02/03/19 at 12:15; Stop 02/03/19 at 12:16; Status DC Labetalol HCl (Normodyne Iv Push) 10 mg 1X ONCE IVP Last administered on 02/03/19at 13:22; Start 02/03/19 at 13:15; Stop 02/03/19 at 13:16; Status DC Fentanyl Citrate (Fentanyl 2ml Vial) 50 mcg 1X ONCE IV Last administered on 02/03/19at 13:39; Start 02/03/19 at 13:45; Stop 02/03/19 at 13:46; Status DC Cefazolin Sodium 50 ml @ 100 mls/hr 1X ONCE IV Last administered on 02/03/19at 13:57; Start 02/03/19 at 13:45; Stop 02/03/19 at 14:14; Status DC Magnesium Sulfate 100 ml @ 25 mls/hr 1X ONCE IV Last administered on 02/03/19at 17:07; Start 02/03/19 at 15:00; Stop 02/03/19 at 18:59; Status DC Celecoxib (CeleBREX) 100 mg BID PO Last administered on 02/03/19at 20:50; Start 02/03/19 at 15:00; Stop 02/04/19 at 08:18; Status DC Labetalol HCl (Normodyne Iv Push) 20 mg 1X ONCE IVP Last administered on 02/03/19at 17:07; Start 02/03/19 at 15:00; Stop 02/03/19 at 15:01; Status DC Clonidine HCl (Catapres) 0.1 mg PRN Q1HR PRN PO HYPERTENSION; Start 02/03/19 at 14:45; Stop 02/03/19 at 14:54; Status DC Acetaminophen (Tylenol) 500 mg PRN Q6HRS PRN PO MILD PAIN / TEMP; Start 02/03/19 at 14:45 Acetaminophen/ Codeine Phosphate (Tylenol #3) 1 tab PRN Q6HRS PRN PO MODERATE PAIN Last administered on 02/05/19at 23:05; Start 02/03/19 at 14:45 Temazepam (Restoril) 7.5 mg PRN QHS PRN PO INSOMNIA; Start 02/03/19 at 14:45 Calcium Carbonate/ Glycine (Tums) 500 mg PRN AFTMEALHC PRN PO INDIGESTION; Start 02/03/19 at 14:45 Ondansetron HCl (Zofran) 4 mg PRN Q6HRS PRN IV NAUSEA/VOMITING Last administered on 02/04/19at 10:10; Start 02/03/19 at 14:45; Stop 02/05/19 at 08:50; Status DC Fentanyl Citrate (Fentanyl 2ml Vial) 25 mcg PRN Q2HR PRN IV PAIN Last administered on 02/03/19at 17:07; Start 02/03/19 at 14:45 Sodium Chloride 1,000 ml @ 100 mls/hr 1X ONCE IV ; Start 02/03/19 at 15:00; Stop 02/03/19 at 15:01; Status DC Labetalol HCl (Normodyne Iv Push) 10 mg PRN Q2HR PRN IVP HYPERTENSION; Start 02/03/19 at 14:45 Colchicine (Colcrys) 0.6 mg DAILY PO Last administered on 02/05/19at 09:02; Start 02/04/19 at 09:00 Colchicine (Colcrys) 1.2 mg 1X ONCE PO Last administered on 02/03/19at 17:07; Start 02/03/19 at 15:30; Stop 02/03/19 at 15:31; Status DC Prednisone (Prednisone) 40 mg DAILY PO Last administered on 02/05/19at 09:02; Start 02/03/19 at 15:30 Mupirocin (Bactroban) 1 amara TID TP Last administered on 02/05/19at 20:55; Start 02/03/19 at 15:30 Warfarin Sodium (Coumadin Per Pharmacy) 1 each PRN DAILY PRN MC SEE COMMENTS Last administered on 02/05/19 11:36; Start 02/03/19 at 15:00 Amoxicillin/ Clavulanate Potassium (Augmentin 500/ 125mg) 1 tab BID PO ; Start 02/03/19 at 16:00; Stop 02/03/19 at 15:10; Status DC Warfarin Sodium (Coumadin) 1 mg 1X WARF ONCE PO Last administered on 02/03/19at 17:07; Start 02/03/19 at 17:00; Stop 02/03/19 at 17:01; Status DC Methimazole (Tapazole) 5 mg DAILY PO Last administered on 02/05/19 09:02; Start 02/03/19 at 17:30 Metoprolol Tartrate (Lopressor) 50 mg BID PO Last administered on 02/05/19 20:55; Start 02/03/19 at 21:00 Simvastatin (Zocor) 20 mg HS PO Last administered on 02/05/19 20:55; Start 02/03/19 at 21:00 Ascorbic Acid (Vitamin C) 1,000 mg DAILY PO Last administered on 02/05/19 09:02; Start 02/03/19 at 17:30 Multivitamins (Thera M Plus) 1 tab DAILY PO Last administered on 02/05/19 09:02; Start 02/03/19 at 17:30 Ceftriaxone Sodium (Rocephin) 1 gm Q24H IVP Last administered on 02/05/19 12:59; Start 02/04/19 at 12:00 Enoxaparin Sodium (Lovenox 40mg Syringe) 40 mg Q24H SQ Last administered on 02/05/19 09:02; Start 02/04/19 at 12:00 Warfarin Sodium (Coumadin) 1 mg 1X WARF ONCE PO Last administered on 02/04/19 16:49; Start 02/04/19 at 16:00; Stop 02/04/19 at 16:01; Status DC Lactobacillus Rhamnosus (Culturelle) 1 cap BID PO Last administered on 20:55; Start 02/04/19 at 21:00 Nystatin (Nystop) 1 amara QID TP Last administered on 02/05/19 20:55; Start 02/04/19 at 14:00 Pantoprazole Sodium (Protonix) 40 mg DAILYAC PO Last administered on 02/06/19at 05:58; Start 02/05/19 at 08:45 Ondansetron HCl (Zofran) 4 mg PRN Q6HRS PRN IV NAUSEA/VOMITING Last administered on 02/05/19at 09:02; Start 02/05/19 at 08:45 Warfarin Sodium (Coumadin) 1 mg 1X WARF ONCE PO Last administered on 02/05/19at 17:06; Start 02/05/19 at 16:00; Stop 02/05/19 at 16:01; Status DC Vitals/I & O Vital Sign - Last 24 Hours 02/05/19 02/05/19 02/05/19 02/05/19 11:36 12:59 14:37 15:45 Temp 98.0 98.2 98.0 98.2 Pulse 63 62 Resp 20 20 B/P (MAP) 162/99 (120) 167/69 (101) Pulse Ox 98 98 98 96 O2 Delivery Room Air Room Air Room Air Room Air 02/05/19 02/05/19 02/05/19 02/05/19 19:55 20:00 20:02 20:55 Temp 97.7 97.7 Pulse 82 70 70 Resp 20 B/P (MAP) 195/71 (112) 143/52 (82) 143/52 Pulse Ox 94 O2 Delivery Room Air Room Air 02/05/19 02/05/19 02/06/19 02/06/19 23:05 23:50 03:35 05:59 Temp 98.0 97.7 98.0 97.7 Pulse 57 65 Resp 20 16 16 18 B/P (MAP) 130/54 (79) 179/68 (105) Pulse Ox 94 96 97 97 O2 Delivery Room Air Room Air Room Air Room Air 02/06/19 07:54 Temp 97.4 97.4 Pulse 65 Resp 18 B/P (MAP) 168/59 (95) Pulse Ox 99 O2 Delivery Room Air Intake and Output 02/05/19 02/05/19 02/06/19 15:00 23:00 07:00 Intake Total 240 ml 300 ml 380 ml Balance 240 ml 300 ml 380 ml GISELE FRANCOIS MD Feb 06, 2019 09:23
[2019-02-06] MEDS ORDERED: PRED20TA PO (09:26)
[2019-02-06] MEDS ORDERED: CEPH-264 PO (09:26)
[2019-02-06] MEDS ORDERED: COLC0.6T34 PO (09:26)
[2019-02-06] MEDS: MULTIVITAMIN with MINERAL TABLET. PO SCH (10:13)
[2019-02-06] MEDS: LACTOBACILLUS RHAMNOSUS GG 1 CAPSULE. PO SCH (10:13)
[2019-02-06] MEDS: ASCORBIC ACID 500 MG TABLET PO SCH (10:13)
[2019-02-06] MEDS: ONDANSETRON PF 4 MG/2 ML VIAL. IV PRN (10:13)
[2019-02-06] MEDS: predniSONE 20 MG TABLET PO SCH (10:14)
[2019-02-06] MEDS: METOPROLOL TART IMMED RELEASE 50 MG TABLET. PO SCH (10:14)
[2019-02-06] MEDS: methIMAzole 10 MG TABLET PO SCH (10:14)
[2019-02-06] MEDS: COLCHICINE 0.6 MG TABLET PO SCH (10:15)
--- NOTE | 2019-02-06 10:45 | PDOC3 ---
Discharge Summary Visit Information Date of Admission: Feb 03, 2019 Date of Discharge: Feb 06, 2019 Admitting Diagnosis: DONALDO on CKD, cellulitis of LLE Final Diagnosis Problems Medical Problems: (1) Acute on chronic renal insufficiency Status: Acute (2) Cellulitis of left lower extremity Status: Acute (3) CHF (congestive heart failure) Status: Acute (4) Gout of right foot Status: Acute (5) Hypertension Status: Acute Brief Hospital Course Allergies Allergies Coded Allergies Type Severity Reaction Last Updated Verified alendronate sodium Allergy Intermediate 02/03/19 Yes Vital Signs Vital Signs Date Time Temp Pulse Resp B/P (MAP) Pulse Ox O2 Delivery O2 Flow Rate FiO2 02/06/19 10:20 65 168/59 02/06/19 08:00 Room Air 02/06/19 07:54 97.4 18 99 97.4 Lab Results Laboratory Tests Test 02/05/19 07:11 02/06/19 04:15 White Blood Count 11.2 x10^3/uL (4.0-11.0) Red Blood Count 3.29 x10^6/uL (3.50-5.40) Hemoglobin 10.1 g/dL (12.0-15.5) Hematocrit 31.0 % (36.0-47.0) Mean Corpuscular Volume 94 fL (79-100) Mean Corpuscular Hemoglobin 31 pg (25-35) Mean Corpuscular Hemoglobin Concent 33 g/dL (31-37) Red Cell Distribution Width 14.0 % (11.5-14.5) Platelet Count 186 x10^3/uL (140-400) Neutrophils (%) (Auto) 89 % (31-73) Lymphocytes (%) (Auto) 6 % (24-48) Monocytes (%) (Auto) 5 % (0-9) Eosinophils (%) (Auto) 0 % (0-3) Basophils (%) (Auto) 0 % (0-3) Neutrophils # (Auto) 10.0 x10^3/uL (1.8-7.7) Lymphocytes # (Auto) 0.7 x10^3/uL (1.0-4.8) Monocytes # (Auto) 0.6 x10^3/uL (0.0-1.1) Eosinophils # (Auto) 0.0 x10^3/uL (0.0-0.7) Basophils # (Auto) 0.0 x10^3/uL (0.0-0.2) Prothrombin Time 18.6 SEC (11.7-14.0) 18.9 SEC (11.7-14.0) Prothromb Time International Ratio 1.6 (0.8-1.1) 1.6 (0.8-1.1) Sodium Level 145 mmol/L (136-145) Potassium Level 5.0 mmol/L (3.5-5.1) Chloride Level 111 mmol/L (98-107) Carbon Dioxide Level 25 mmol/L (21-32) Anion Gap 9 (6-14) Blood Urea Nitrogen 35 mg/dL (7-20) Creatinine 1.5 mg/dL (0.6-1.0) Estimated GFR (Cockcroft-Gault) 33.5 Glucose Level 96 mg/dL (70-99) Calcium Level 7.0 mg/dL (8.5-10.1) Anti-Streptolysin O Antibody 46.9 IU/mL (0.0-200.0) Laboratory Tests Test 02/06/19 04:15 Prothrombin Time 18.9 SEC (11.7-14.0) Prothromb Time International Ratio 1.6 (0.8-1.1) Brief Hospital Course Ms Tilley is a 78 obese female who actually looks younger than stated age, rt bog toe treated as gout by PCP maybe a week ago, celebrex, pred 6 mgs taper, Got better but recurred so back here, She also fell, lives in [place], and has skin tear left knee. On chronic warfarin for multiple bilateral DVTs. Having nausea with colchicine. Improved with zofran. Still with pain able to bear weight on her right foot. Bilateral ankle pain today. Wants home health per PT and OT recommendations. Likely rt big toe gout //cellulitis - colcrys, Mechanical fall in [place] with rt knee skin tear- bactroban, local wound care Obesity Accel HTN - resume home med, iv LAbetolol prn Subtherapeutic iNR (on warf) - HYPERthyroid on tapazole- as per PCP, NO DVT, normal CXR no evidence of deep venous thrombosis from the bilateral common femoral to the popliteal veins. CKD stage 3 , - creat 1.4 d/c celebrex Chronic diastolic chf Greater than 30 minutes spent on d/c Discharge Information Condition at Discharge: Improved Follow Up: Weeks Disposition/Orders: D/C to Home w/ HH Scheduled Cephalexin (Keflex) 500 Mg Capsule, 1 CAP PO BID for Cellulitis for 10 Days, #20 Prescribed by: GISELE FRANCOIS MD on 02/06/19925 Colchicine (Colcrys) 0.6 Mg Tablet, 0.6 MG PO DAILY for Gout flare for 10 Days, #10 Can substitute with any colchicine derivative for cost effectiveness Prescribed by: GISELE FRANCOIS MD on 02/06/19925 Prednisone (Prednisone) 20 Mg Tablet, 20 MG PO DAILY for Gout for 10 Days, #10 Prescribed by: GISELE FRANCOIS MD on 02/06/19925 GISELE FRANCOIS MD Feb 06, 2019 10:45
--- NOTE | 2019-02-06 10:47 | SNU/HH DC ---
DISCHARGE WITH HOME HEALTH DISCHARGE INFORMATION: Discharge Date: Feb 06, 2019 Final Diagnosis: Problems Medical Problems: (1) Acute on chronic renal insufficiency Status: Acute (2) Cellulitis of left lower extremity Status: Acute (3) CHF (congestive heart failure) Status: Acute (4) Gout of right foot Status: Acute (5) Hypertension Status: Acute Condition on Discharge: Stable CODE STATUS: Code Status: Full HOME HEALTH: Face to Face: I certify this patient is under my care and that I, or a nurse practitioner or physician's speech and language assistant working with me, had a face to face encounter that meets the physician face to face encounter requirements with this patient on 02/06/2019. Medical Complications: Falls, Other (Left leg cellulitis, gout) RN For Eval/Treatment: Yes Physical Therapy For: Evalulation/Treatment Occupational Therapy For: Evaluation/Treatment Pt Meets Homebound Status: Unsteady balance w/ amb, POST DISCHARGE ORDERS: Activity Instructions for Disc: Activity as tolerated Weight Bearing Status after Di: No restrictions, Full weight bearing DIET AFTER DISCHARGE: Regular CHECKS AFTER DISCHARGE: Checks after discharge: Check blood press - daily, Check your Temp as needed FOLLOW-UP: Warfarin Follow UP: INR on 02/08/2019 and weekly TREATMENT/EQUIPMENT ORDERS: Adaptive Equipment Issued: Front wheeled walker CERTIFICATION STATEMENT: Certification Statement: Certification Statement: Based on the above finding, I certify that this patient is confined to the home and needs intermittent fpc care, physical therapy and/or speech therapy, or continues to need occupational therapy.~ This patient is under my care, and I have initiated the establishment of the plan of care.~ This patient will be followed by myself or a community physician who will periodically review the plan of care. Home Meds Active Scripts Cephalexin (KEFLEX) 500 Mg Capsule, 1 CAP PO BID for Cellulitis for 10 Days, #20 CAP Prov:GISELE FRANCOIS MD 02/06/19 Prednisone (PREDNISONE) 20 Mg Tablet, 20 MG PO DAILY for Gout for 10 Days, #10 TAB Prov:GISELE FRANCOIS MD 02/06/19 Colchicine (COLCRYS) 0.6 Mg Tablet, 0.6 MG PO DAILY for Gout flare for 10 Days, #10 TAB Can substitute with any colchicine derivative for cost effectiveness Prov:GISELE FRANCOIS MD 02/06/19 GISELE FRANCOIS MD Feb 06, 2019 10:47
--- NOTE | 2019-02-06 11:18 | NUR ---
REPORT CALLED TO RAMÍREZ AT [facility] @ 1120.
[2019-02-06 11:23] VITALS: BP 149/53
[2019-02-06] MEDS: NYSTATIN TOPICAL POWDER 15GM BOTTLE. TP SCH (11:37)
[2019-02-06] MEDS: cefTRIAXone IV Push 1 GM VIAL. IVP SCH (11:37)
[2019-02-06] MEDS: MUPIROCIN 2 % TOPICAL CREAM 30GM TUBE. TP SCH (11:37)
[2019-02-06] MEDS: ENOXAPARIN 40 MG/0.4 ML SYRINGE. SQ SCH (11:38)
--- NOTE | 2019-02-06 11:43 | NUR ---
MILENA following pt. Orders faxed to [facility] and [facility] [place]. [facility] will start services tomorrow. MILENA arranged transport via central transport at 1330. Pt's choice and rights forms signed by pt and copies on chart. Elizabeth at [facility] notified. Pt agreeable with plans. Discussed with RN.
--- NOTE | 2019-02-06 13:46 | NUR ---
Discharge Note: LEOBARDO OMALLEY [address] [place] [address] Discharge instructions and discharge home medications reviewed with Patient and a copy given. All questions have been answered and understanding verbalized. The following instructions and handouts were given: follow up instructions, activity levels, and medication lists. Discontinued lines and drains: Peripheral IV intact. Patient discharged to Assisted Living with Ambulance Personnel via Wheelchair.
== END 2019-02-06 13:35 | disposition home health service (06) | DRG 683 ==
LOC: ER 11:29 → 6 SOUTH 13:54
PROVIDERS: ADMIT Internal Medicine; ATTEND Internal Medicine
DX: N17.9 Acute kidney failure, unspecified (principal); L03.116 Cellulitis of left lower limb; I50.32 Chronic diastolic (congestive) heart failure; I13.0 Hypertensive heart and chronic kidney disease with heart failure and stage 1 through stage 4 chronic kidney disease, or unspecified chronic kidney disease; N18.3 Chronic kidney disease, stage 3 (moderate); E66.9 Obesity, unspecified; E78.00 Pure hypercholesterolemia, unspecified; E89.0 Postprocedural hypothyroidism; M10.9 Gout, unspecified; M19.90 Unspecified osteoarthritis, unspecified site; R79.1 Abnormal coagulation profile; K21.9 Gastro-esophageal reflux disease without esophagitis; S81.011A Laceration without foreign body, right knee, initial encounter; Z79.01 Long term (current) use of anticoagulants; Z86.73 Personal history of transient ischemic attack (TIA), and cerebral infarction without residual deficits; Z90.710 Acquired absence of both cervix and uterus; Z96.651 Presence of right artificial knee joint; Z90.49 Acquired absence of other specified parts of digestive tract; W18.39XA Other fall on same level, initial encounter; Y93.89 Activity, other specified; Y92.89 Other specified places as the place of occurrence of the external cause; Y99.8 Other external cause status; Z68.37 Body mass index [BMI] 37.0-37.9, adult
CPT/HCPCS: 36415; 71045; 73630; 80048; 80053; 83605; 83735; 83880; 84550; 85007; 85025; 85610; 85651; 85730; 86060; 87641; 93005; 93970; 96365; 96375; 96376; J0690; J0696; J1650; J2405; J3010; J3475; J3490; J7512; 97110; 97530; 99285-25; G0378

== ENCOUNTER 2019-02-11 08:16 | Emergency (ER) | payer MEDICARE, OTHER ==
[~2019-02-11] VITALS: Ht 149.9 cm; Wt 88.0 kg
[~2019-02-11 08:16] MED LIST: CEPH-264 PO; COLC0.6T34 PO; PRED20TA PO
[2019-02-11] MEDS ORDERED: IV NORMAL SALINE 1000ML BAG 1,000 ML IV ONE (09:00)
--- NOTE | 2019-02-11 09:02 | PHYS DOC ---
Past Medical History Past Medical History: Arthritis, CVA, GERD, High Cholesterol, Hypertension, Stroke Additional Past Medical Histor: blood clots, gout Past Surgical History: Appendectomy, Cholecystectomy, Hysterectomy, Knee Replacement, Other Alcohol Use: None Drug Use: None Adult General Chief Complaint Chief Complaint: DIARRHEA HPI HPI Patient is a 78 year old Female who presents with just discharged from [facility] with gout and cellulitis. Patient has been on antibiotics. Patient states that since Tuesday she has had watery diarrhea. Patient states she's been trying to take Imodium no work for a little bit but then the diarrhea starts again. Patient states at times she'll have low abdominal cramping patient usually has to have diarrhea. Ambulatory with her walker. Alert and oriented. Patient is also hypertensive but states she took her medications this morning. Review of Systems Review of Systems Constitutional: Denies fever or chills [] GI: abdominal pain, nausea, denies vomiting, bloody stools. +diarrhea [] All other systems were reviewed and found to be within normal limits, except as documented in this note. Current Medications Current Medications Current Medications Medications (Trade) Dose Ordered Sig/Kehinde Start Time Stop Time Status Last Admin Dose Admin Clonidine HCl (Catapres) 0.1 mg 1X ONCE 02/11/19 10:30 02/11/19 10:31 DC 02/11/19 11:19 0.1 MG Sodium Chloride 1,000 ml @ 1,000 mls/hr 1X ONCE 02/11/19 09:00 02/11/19 09:59 DC 02/11/19 09:37 1,000 MLS/HR Allergies Allergies Allergies Coded Allergies Type Severity Reaction Last Updated Verified alendronate sodium Allergy Intermediate 02/03/19 Yes Physical Exam Physical Exam Constitutional: Well developed, well nourished, no acute distress, non-toxic appearance. [] HENT: Normocephalic, atraumatic, bilateral external ears normal, oropharynx moist, no oral exudates, nose normal. [] Eyes: PERRLA, EOMI, conjunctiva normal, no discharge. [] Neck: Normal range of motion, no tenderness, supple, no stridor. [] Cardiovascular:Heart rate regular rhythm, no murmur [] Lungs & Thorax: Bilateral breath sounds clear to auscultation [] Abdomen: Bowel sounds normal, soft, no tenderness, no masses, no pulsatile masses. [] Skin: Warm, dry, no erythema, no rash. [] Back: No tenderness, no CVA tenderness. [] Extremities: No tenderness, no cyanosis, no clubbing, ROM intact, no edema. [] Neurologic: Alert and oriented X 3, normal motor function, normal sensory function, no focal deficits noted. [] Psychologic: Affect normal, judgement normal, mood normal. Normal Physical Exam [] Current Patient Data Vital Signs Vital Signs Date Time Temp Pulse Resp B/P (MAP) Pulse Ox O2 Delivery O2 Flow Rate FiO2 02/11/19 12:03 97.4 60 18 152/54 (86) 97 Room Air 97.4 Lab Values Laboratory Tests Test 02/11/19 09:07 02/11/19 09:17 White Blood Count 9.7 x10^3/uL (4.0-11.0) Red Blood Count 3.82 x10^6/uL (3.50-5.40) Hemoglobin 11.9 g/dL (12.0-15.5) L Hematocrit 36.0 % (36.0-47.0) Mean Corpuscular Volume 94 fL (79-100) Mean Corpuscular Hemoglobin 31 pg (25-35) Mean Corpuscular Hemoglobin Concent 33 g/dL (31-37) Red Cell Distribution Width 14.3 % (11.5-14.5) Platelet Count 257 x10^3/uL (140-400) Neutrophils (%) (Auto) 94 % (31-73) H Lymphocytes (%) (Auto) 4 % (24-48) L Monocytes (%) (Auto) 1 % (0-9) Eosinophils (%) (Auto) 0 % (0-3) Basophils (%) (Auto) 0 % (0-3) Neutrophils # (Auto) 9.1 x10^3/uL (1.8-7.7) H Lymphocytes # (Auto) 0.4 x10^3/uL (1.0-4.8) L Monocytes # (Auto) 0.1 x10^3/uL (0.0-1.1) Eosinophils # (Auto) 0.0 x10^3/uL (0.0-0.7) Basophils # (Auto) 0.0 x10^3/uL (0.0-0.2) Platelet Estimate Pending Sodium Level 143 mmol/L (136-145) Potassium Level 4.7 mmol/L (3.5-5.1) Chloride Level 106 mmol/L (98-107) Carbon Dioxide Level 27 mmol/L (21-32) Anion Gap 10 (6-14) Blood Urea Nitrogen 29 mg/dL (7-20) H Creatinine 1.4 mg/dL (0.6-1.0) H Estimated GFR (Cockcroft-Gault) 36.3 BUN/Creatinine Ratio 21 (6-20) H Glucose Level 119 mg/dL (70-99) H Lactic Acid Level 1.5 mmol/L (0.4-2.0) Calcium Level 7.7 mg/dL (8.5-10.1) L Total Bilirubin 0.6 mg/dL (0.2-1.0) Aspartate Amino Transferase (AST) 17 U/L (15-37) Alanine Aminotransferase (ALT) 25 U/L (14-59) Alkaline Phosphatase 65 U/L (46-116) Troponin I Quantitative < 0.017 ng/mL (0.000-0.055) Total Protein 7.0 g/dL (6.4-8.2) Albumin 3.3 g/dL (3.4-5.0) L Albumin/Globulin Ratio 0.9 (1.0-1.7) L Urine Collection Type Unknown Urine Color Yellow Urine Clarity Clear Urine pH 7.0 Urine Specific [place] 1.010 Urine Protein >=300 mg/dL (NEG-TRACE) Urine Glucose (UA) Negative mg/dL (NEG) Urine Ketones (Stick) Negative mg/dL (NEG) Urine Blood Trace (NEG) Urine Nitrite Negative (NEG) Urine Bilirubin Negative (NEG) Urine Urobilinogen Dipstick 0.2 mg/dL (0.2 mg/dL) Urine Leukocyte Esterase Negative (NEG) Urine RBC 1-2 /HPF (0-2) Urine WBC 0 /HPF (0-4) Urine Squamous Epithelial Cells Few /LPF Urine Bacteria 0 /HPF (0-FEW) Laboratory Tests 02/11/19 09:07 Laboratory Tests 02/11/19 09:07 EKG EKG Sinus Rhythm with PVC, no STEMI[] Interpretation Time: [address] Jalloh Radiology/Procedures Radiology/Procedures [] Impressions: [facility] [address] [place] [address] IMAGING REPORT Signed PATIENT: LEOBARDO OMALLEY ACCOUNT: [id number] : 1940 LOCATION: ER AGE: 78 SEX: F EXAM STATUS: PRE ER ORD. PHYSICIAN: LUCAS STRICKLAND APRN REASON: DIARRHEA PROCEDURE: CT ABDOMEN PELVIS WO CONTRAST Exam performed: CT scan of the abdomen and pelvis without contrast. Clinical Indication: Diarrhea. Date of Service: 02/11/2019 comparison: None available Technique: Contiguous helical acquisitions are obtained through the abdomen and pelvis without IV contrast. Sagittal and coronal reformatted images are obtained and reviewed. CT abdomen and pelvis findings: Linear right basilar atelectasis, lung bases are otherwise essentially clear. Visualized heart is normal. Lack of IV contrast limits evaluation of abdominal viscera, however the liver, spleen and pancreas are normal. Gallbladder appears surgically absent. Both adrenal glands and bilateral kidneys are normal in size without hydronephrosis or nephrolithiasis. Aorta is normal in caliber without aneurysm. The small and large bowel loops are nondilated and unremarkable. Sigmoid diverticulosis without acute diverticulitis. The visualized portion of the appendix is unremarkable Distal ureters are nondilated. Urinary bladder is decompressed and thick walled. [Hysterectomy, no adnexal masses seen.] No free or focal fluid collections are identified. Scoliosis of the lumbar spine with rightward concavity. There is a left rectus sheath hematoma measuring 5.1 x 4.3 x 4.3 cm in maximum transverse, AP and craniocaudal dimension. Impression: Left inferior rectus sheath asymmetric high attenuation density measuring 5.1 x 4.2 x 4.3 cm likely a rectus sheath hematoma. Sigmoid diverticulosis without acute diverticulitis. Right basilar atelectasis. PQRS Compliance Statement: One or more of the following individualized dose reduction techniques were utilized for this examination: 1. Automated exposure control 2. Adjustment of the mA and/or kV according to patient size 3. Use of iterative reconstruction technique Electronically signed by: Bria Berrios MD (02/11/2019 11:17 AM) [facility] DICTATED and SIGNED BY: BRIA BERRIOS MD DATE: 02/11/197 Course & Med Decision Making Course & Med Decision Making Patient is a 78 year old Female who presents with just discharged from [facility] with gout and cellulitis. Patient has been on antibiotics. Patient states that since Tuesday she has had watery diarrhea. Patient states she's been trying to take Imodium no work for a little bit but then the diarrhea starts again. Patient states at times she'll have low abdominal cramping patient usually has to have diarrhea. Ambulatory with her walker. Alert and oriented. Patient is also hypertensive but states she took her medications this morning. Patient denies any pain at this time. Skin pink warm and dry. Speaks in full clear sentences. Denies chest pain, nausea, vomiting, fevers, body aches, shortness of breath, numbness or tingling, weakness. Patient states at times she feels nauseated but she has not been vomiting. Patient states she's been trying to drink a lot of water and eating some crackers. Lungs are clear to auscultation all lobes. Patient is hypertensive in the 200s over 80s. No extremity swelling. PERRLA. I have consulted with Dr Jalloh on this patient. Clonidine 0.1mg given for blood pressure. Patient is asymptomatic. 1200: Blood pressure is 150/54. Temperature is 97.4. Blood work unremarkable. Patient has not given a stool sample. Patient has not had any abdominal pain since she has been here and has not had any stools. Patient states she had 3 stool this AM. BUN and creatinine is elevated but looking back the levels are right around where she stays normally and actually a bit lower. CT ABD PELV done without contrast due to Kidney function shows: Left inferior rectus sheath asymmetric high attenuation density measuring 5.1 x 4.2 x 4.3 cm likely a rectus sheath hematoma. Sigmoid diverticulosis without acute diverticulitis. Right basilar atelectasis. I have spoken to Dr Laurent and given the patient is stable, the blood work is stable, she has no symptoms since she has been here, and is not dehydrated she will be discharged and follow up with primary care provider. Patient again has not had a stool and has not been able to give us a specimen. Estela Disclaimer Dragon Disclaimer This electronic medical record was generated, in whole or in part, using a voice recognition dictation system. Departure Departure Impression: Primary Impression: Diarrhea Disposition: HOME, SELF-CARE Condition: STABLE Referrals: LOI MONIQUE (PCP) Patient Instructions: Diarrhea Additional Instructions: Follow up with Primary care physician. Drink plenty of fluids. If abdominal pain worsens or you begin running a fever or vomiting, return to ED. Problem Qualifiers Primary Impression: Diarrhea Diarrhea type: unspecified type Qualified Codes: R19.7 - Diarrhea, unspecified LUCAS STRICKLAND APRN Feb 11, 2019 09:02
[2019-02-11 09:20] LABS: BASO % 0 % (0-3); EOS % 0 % (0-3); HEMOGLOBIN 11.9 g/dL (12.0-15.5); LYMPH # 0.4 x10^3/uL (1.0-4.8); LYMPH % 4 % (24-48); MEAN CORPUSCULAR HEMOGLOBIN 31 pg (25-35); MEAN CORPUSCULAR HGB CONC 33 g/dL (31-37); MEAN CORPUSCULAR VOLUME 94 fL (79-100); MONO # 0.1 x10^3/uL (0.0-1.1); MONO % 1 % (0-9); NEUT # 9.1 x10^3/uL (1.8-7.7); NEUT % 94 % (31-73); PLATELET COUNT 257 x10^3/uL (140-400); RED BLOOD COUNT 3.82 x10^6/uL (3.50-5.40); RED CELL DISTRIBUTION WIDTH 14.3 % (11.5-14.5); WHITE BLOOD COUNT 9.7 x10^3/uL (4.0-11.0)
[2019-02-11 09:31] LABS: CALCIUM 7.7 mg/dL (8.5-10.1); CREATININE 1.4 mg/dL (0.6-1.0); GFR 36.3; POTASSIUM 4.7 mmol/L (3.5-5.1)
[2019-02-11 09:42] LABS: BACTERIA,URINE 0 /HPF (0-FEW); BILIRUBIN,URINE NEGATIVE (NEG); CLARITY,URINE CLEAR; COLOR,URINE YELLOW; NITRITE,URINE NEGATIVE (NEG); PROTEIN,URINE >=300 mg/dL (NEG-TRACE); SQUAMOUS EPITHELIAL CELL,UR FEW /LPF; UROBILINOGEN,URINE 0.2 mg/dL (0.2 mg/dL); WBC,URINE 0 /HPF (0-4)
[2019-02-11 09:46] LABS: ALBUMIN 3.3 g/dL (3.4-5.0); ALBUMIN/GLOBULIN RATIO 0.9 (1.0-1.7); TOTAL BILIRUBIN 0.6 mg/dL (0.2-1.0)
[2019-02-11] MEDS ORDERED: cloNIDine HCL 0.1 MG TABLET PO ONE (10:30)
--- NOTE | 2019-02-11 11:20 | RAD ---
Exam performed: CT scan of the abdomen and pelvis without contrast. Clinical Indication: Diarrhea. Date of Service: 02/11/2019 comparison: None available Technique: Contiguous helical acquisitions are obtained through the abdomen and pelvis without IV contrast. Sagittal and coronal reformatted images are obtained and reviewed. CT abdomen and pelvis findings: Linear right basilar atelectasis, lung bases are otherwise essentially clear. Visualized heart is normal. Lack of IV contrast limits evaluation of abdominal viscera, however the liver, spleen and pancreas are normal. Gallbladder appears surgically absent. Both adrenal glands and bilateral kidneys are normal in size without hydronephrosis or nephrolithiasis. Aorta is normal in caliber without aneurysm. The small and large bowel loops are nondilated and unremarkable. Sigmoid diverticulosis without acute diverticulitis. The visualized portion of the appendix is unremarkable Distal ureters are nondilated. Urinary bladder is decompressed and thick walled. [Hysterectomy, no adnexal masses seen.] No free or focal fluid collections are identified. Scoliosis of the lumbar spine with rightward concavity. There is a left rectus sheath hematoma measuring 5.1 x 4.3 x 4.3 cm in maximum transverse, AP and craniocaudal dimension. Impression: Left inferior rectus sheath asymmetric high attenuation density measuring 5.1 x 4.2 x 4.3 cm likely a rectus sheath hematoma. Sigmoid diverticulosis without acute diverticulitis. Right basilar atelectasis. PQRS Compliance Statement: One or more of the following individualized dose reduction techniques were utilized for this examination: 1. Automated exposure control 2. Adjustment of the mA and/or kV according to patient size 3. Use of iterative reconstruction technique Electronically signed by: Bria Berrios MD (02/11/2019 11:17 AM) [facility]
[2019-02-11 13:09] LABS: % BANDS 3 % (0-9); % LYMPHS 2 % (24-48); % SEGS 95 % (35-66)
[2019-02-11 13:10] LABS: PLT ESTIMATE ADEQUATE (ADEQUATE)
[2019-02-11 13:25] VITALS: BP 174/72
--- NOTE | 2019-02-12 06:26 | EKG ---
[facility] [address] [place] [address] Test Date: 2019-02-11 Test Time: 09:21:06 Pat Name: LEOBARDO OMALLEY Department: Room: Gender: F Business Banking Representative: : 1940 Requested By: LUCAS STRICKLAND Order Number: [id number] Reading MD: Measurements Intervals [place] Rate: 59 P: 27 IA: 176 QRS: 20 QRSD: 90 T: 38 QT: 442 QTc: 442 Interpretive Statements SINUS RHYTHM VENTRICULAR PREMATURE COMPLEX(ES) T ABNORMALITY IN HIGH LATERAL LEADS ABNORMAL ECG No previous ECG available for comparison
== END 2019-02-11 13:25 | disposition home or self-care (01) ==
LOC: ER 08:16
DX: R19.7 Diarrhea, unspecified (principal); R10.9 Unspecified abdominal pain; R11.0 Nausea; M19.90 Unspecified osteoarthritis, unspecified site; K21.9 Gastro-esophageal reflux disease without esophagitis; E78.00 Pure hypercholesterolemia, unspecified; I10 Essential (primary) hypertension; Z86.73 Personal history of transient ischemic attack (TIA), and cerebral infarction without residual deficits; Z90.89 Acquired absence of other organs; Z90.49 Acquired absence of other specified parts of digestive tract; Z90.710 Acquired absence of both cervix and uterus; Z96.659 Presence of unspecified artificial knee joint; Z88.8 Allergy status to other drugs, medicaments and biological substances
CPT/HCPCS: 36415; 74176; 80053; 81001; 83605; 84484; 85007; 85025; 93005; 96360; 99285; J7030

== ENCOUNTER 2019-02-19 10:10 | Emergency (ER) | payer MEDICARE, OTHER ==
[~2019-02-19] VITALS: Ht 154.9 cm; Wt 86.2 kg
--- NOTE | 2019-02-19 11:00 | RAD ---
Examination: PORTABLE CHEST 1V History: Shortness of breath Comparison/Correlation: 02/03/2019 AP view of the chest Findings: Portable upright frontal view of the chest was obtained. Heart size and pulmonary vasculature are normal. No infiltrate, pneumothorax or pleural effusion. Linear lucency at the right mid thorax probably relates to a skinfold. Right glenohumeral joint degenerative changes are advanced. Impression: No acute process. Electronically signed by: Michele Lindsey MD (02/19/2019 10:57 AM) [facility]
--- NOTE | 2019-02-19 11:03 | PHYS DOC ---
Past Medical History Past Medical History: Arthritis, CVA, GERD, High Cholesterol, Hypertension, Stroke Additional Past Medical Histor: blood clots, gout Past Surgical History: Appendectomy, Cholecystectomy, Hysterectomy, Knee Replacement, Other Alcohol Use: None Drug Use: None Adult General Chief Complaint Chief Complaint: BRADYCARDIA HPI HPI Patient is a 78 year old female who was sent here from the intermediate due to slow heart rate this morning. Patient denies any chest pain, no abdominal pain, no nausea or vomiting, no weakness or dizziness. Patient says she feels fine. Patient denies any trouble breathing. Patient said the intermediate staff checking her vital signs this morning and said her heart rate was in the 30-40 beats per minutes. Patient is on 100 mg of metoprolol twice a day. She has history hypertension, hyperthyroidism. All other ROS is negative unless otherwise noted in HPI Review of Systems Review of Systems See above Allergies Allergies Allergies Coded Allergies Type Severity Reaction Last Updated Verified alendronate sodium Allergy Intermediate 02/03/19 Yes Physical Exam Physical Exam See above Constitutional: Well developed, well nourished, no acute distress, non-toxic appearance. [] HENT: Normocephalic, atraumatic, bilateral external ears normal, oropharynx moist, no oral exudates, nose normal. [] Eyes: PERRLA, EOMI, conjunctiva normal, no discharge. [] Neck: Normal range of motion, no tenderness, supple, no stridor. [] Cardiovascular: Sinus bradycardia, rate of about 68 bpm, with PVC, no murmur [] Lungs & Thorax: Bilateral breath sounds clear to auscultation [] Abdomen: Bowel sounds normal, soft, no tenderness, no masses, no pulsatile masses. [] Skin: Warm, dry, no erythema, no rash. [] Back: No tenderness, no CVA tenderness. [] Extremities: No tenderness, no cyanosis, no clubbing, ROM intact, no edema. [] Neurologic: Alert and oriented X 3, normal motor function, normal sensory function, no focal deficits noted. [] Psychologic: Affect normal, judgement normal, mood normal. [] Current Patient Data Vital Signs Vital Signs Date Time Temp Pulse Resp B/P (MAP) Pulse Ox O2 Delivery O2 Flow Rate FiO2 02/19/19 10:20 98.4 69 20 196/108 (137) 100 Room Air 98.4 Lab Values Laboratory Tests Test 02/19/19 10:40 02/19/19 10:54 Urine Collection Type Unknown Urine Color Yellow Urine Clarity Clear Urine pH 7.0 Urine Specific [place] 1.010 Urine Protein 100 mg/dL (NEG-TRACE) Urine Glucose (UA) Negative mg/dL (NEG) Urine Ketones (Stick) Negative mg/dL (NEG) Urine Blood Negative (NEG) Urine Nitrite Negative (NEG) Urine Bilirubin Negative (NEG) Urine Urobilinogen Dipstick 0.2 mg/dL (0.2 mg/dL) Urine Leukocyte Esterase Negative (NEG) Urine RBC Occ /HPF (0-2) Urine WBC 0 /HPF (0-4) Urine Squamous Epithelial Cells Few /LPF Urine Bacteria 0 /HPF (0-FEW) White Blood Count 6.8 x10^3/uL (4.0-11.0) Red Blood Count 3.84 x10^6/uL (3.50-5.40) Hemoglobin 11.9 g/dL (12.0-15.5) L Hematocrit 36.2 % (36.0-47.0) Mean Corpuscular Volume 94 fL (79-100) Mean Corpuscular Hemoglobin 31 pg (25-35) Mean Corpuscular Hemoglobin Concent 33 g/dL (31-37) Red Cell Distribution Width 15.2 % (11.5-14.5) H Platelet Count 225 x10^3/uL (140-400) Neutrophils (%) (Auto) 76 % (31-73) H Lymphocytes (%) (Auto) 12 % (24-48) L Monocytes (%) (Auto) 10 % (0-9) H Eosinophils (%) (Auto) 1 % (0-3) Basophils (%) (Auto) 1 % (0-3) Neutrophils # (Auto) 5.2 x10^3/uL (1.8-7.7) Lymphocytes # (Auto) 0.8 x10^3/uL (1.0-4.8) L Monocytes # (Auto) 0.7 x10^3/uL (0.0-1.1) Eosinophils # (Auto) 0.1 x10^3/uL (0.0-0.7) Basophils # (Auto) 0.0 x10^3/uL (0.0-0.2) Sodium Level 142 mmol/L (136-145) Potassium Level 4.5 mmol/L (3.5-5.1) Chloride Level 107 mmol/L (98-107) Carbon Dioxide Level 28 mmol/L (21-32) Anion Gap 7 (6-14) Blood Urea Nitrogen 34 mg/dL (7-20) H Creatinine 1.5 mg/dL (0.6-1.0) H Estimated GFR (Cockcroft-Gault) 33.5 BUN/Creatinine Ratio 23 (6-20) H Glucose Level 104 mg/dL (70-99) H Calcium Level 8.3 mg/dL (8.5-10.1) L Magnesium Level 1.4 mg/dL (1.8-2.4) L Total Bilirubin 0.8 mg/dL (0.2-1.0) Aspartate Amino Transferase (AST) 19 U/L (15-37) Alanine Aminotransferase (ALT) 19 U/L (14-59) Alkaline Phosphatase 65 U/L (46-116) Troponin I Quantitative < 0.017 ng/mL (0.000-0.055) [id number]-[id number]-U-Type Natriuretic Peptide 1473 pg/mL (0-449) H Total Protein 6.3 g/dL (6.4-8.2) L Albumin 3.3 g/dL (3.4-5.0) L Albumin/Globulin Ratio 1.1 (1.0-1.7) Lipase 108 U/L (73-393) Thyroid Stimulating Hormone (TSH) 1.064 uIU/mL (0.358-3.74) Free Thyroxine 1.24 ng/dL (0.76-1.46) Laboratory Tests 02/19/19 10:54 Laboratory Tests 02/19/19 10:54 EKG EKG EKG was read by this physician at 1017, rate of 68 BPM, sinus bradycardia, with PVC, no STEMI. Radiology/Procedures Radiology/Procedures [][facility] [address] [place] [address] IMAGING REPORT Signed PATIENT: LEOBARDO OMALLEY ACCOUNT: [id number] : 1940 LOCATION: ER AGE: 78 SEX: F EXAM STATUS: REG ER ORD. PHYSICIAN: MISA CHU DO REASON: soa PROCEDURE: PORTABLE CHEST 1V Examination: PORTABLE CHEST 1V History: Shortness of breath Comparison/Correlation: 02/03/2019 AP view of the chest Findings: Portable upright frontal view of the chest was obtained. Heart size and pulmonary vasculature are normal. No infiltrate, pneumothorax or pleural effusion. Linear lucency at the right mid thorax probably relates to a skinfold. Right glenohumeral joint degenerative changes are advanced. Impression: No acute process. Electronically signed by: Michele Goodman MD (02/19/2019 10:57 AM) [facility] DICTATED and SIGNED BY: MICHELE GOODMAN MD DATE: 02/19/19 8977 Course & Med Decision Making Course & Med Decision Making Pertinent Labs and Imaging studies reviewed. (See chart for details) Patient was doing fine in the ER. Her heart rate has been stabilized around 68 bpm. She denied any chest pain, no shortness of air, no abdominal pain. No weakness or dizziness. Patient's slow heart rate is due to metoprolol. She was advised to cut the dose in half, and will need to call her doctor today for follow up this week. Dragon Disclaimer Dragon Disclaimer This electronic medical record was generated, in whole or in part, using a voice recognition dictation system. Departure Departure Impression: Primary Impression: Sinus bradycardia Disposition: 01 HOME, SELF-CARE Condition: IMPROVED Referrals: LOI MONIQUE (PCP) follow up with your doctor this week. CUT THE DOSE OF YOUR METOPROLOL IN HALF. Patient Instructions: Bradycardia MISA CHU DO Feb 19, 2019 11:03
[2019-02-19 11:13] LABS: BILIRUBIN,URINE NEGATIVE (NEG); CLARITY,URINE CLEAR; COLOR,URINE YELLOW; NITRITE,URINE NEGATIVE (NEG); PROTEIN,URINE 100 mg/dL (NEG-TRACE); UROBILINOGEN,URINE 0.2 mg/dL (0.2 mg/dL)
[2019-02-19 11:24] LABS: BASO % 1 % (0-3); EOS # 0.1 x10^3/uL (0.0-0.7); EOS % 1 % (0-3); HEMATOCRIT 36.2 % (36.0-47.0); HEMOGLOBIN 11.9 g/dL (12.0-15.5); LYMPH # 0.8 x10^3/uL (1.0-4.8); LYMPH % 12 % (24-48); MEAN CORPUSCULAR HEMOGLOBIN 31 pg (25-35); MEAN CORPUSCULAR HGB CONC 33 g/dL (31-37); MEAN CORPUSCULAR VOLUME 94 fL (79-100); MONO # 0.7 x10^3/uL (0.0-1.1); MONO % 10 % (0-9); NEUT # 5.2 x10^3/uL (1.8-7.7); NEUT % 76 % (31-73); PLATELET COUNT 225 x10^3/uL (140-400); RED BLOOD COUNT 3.84 x10^6/uL (3.50-5.40); RED CELL DISTRIBUTION WIDTH 15.2 % (11.5-14.5); WHITE BLOOD COUNT 6.8 x10^3/uL (4.0-11.0)
[2019-02-19 11:26] LABS: CALCIUM 8.3 mg/dL (8.5-10.1); CREATININE 1.5 mg/dL (0.6-1.0); GFR 33.5; POTASSIUM 4.5 mmol/L (3.5-5.1)
[2019-02-19 11:32] LABS: ALBUMIN 3.3 g/dL (3.4-5.0); ALBUMIN/GLOBULIN RATIO 1.1 (1.0-1.7); MAGNESIUM 1.4 mg/dL (1.8-2.4); TOTAL BILIRUBIN 0.8 mg/dL (0.2-1.0); TOTAL PROTEIN 6.3 g/dL (6.4-8.2)
[2019-02-19 11:41] LABS: FREE T4 1.24 ng/dL (0.76-1.46); THYROID STIM HORMONE (TSH) 1.064 uIU/mL (0.358-3.74)
[2019-02-19 11:43] VITALS: BP 187/79
[2019-02-19 11:50] LABS: BACTERIA,URINE 0 /HPF (0-FEW); RBC,URINE OCC /HPF (0-2); SQUAMOUS EPITHELIAL CELL,UR FEW /LPF; WBC,URINE 0 /HPF (0-4)
--- NOTE | 2019-02-19 12:27 | EKG ---
[facility] [address] [place] [address] Test Date: 2019-02-19 Test Time: 10:17:09 Pat Name: LEOBARDO OMALLEY Department: Room: Gender: F [employer] Pumper: : 1940 Requested By: MISA CHU Order Number: [id number] Reading MD: Matthias Burgos MD Measurements Intervals Wallace Rate: 68 P: 27 [place]: 174 QRS: 6 QRSD: 92 T: 42 QT: 390 QTc: 419 Interpretive Statements SINUS RHYTHM VENTRICULAR PREMATURE COMPLEX(ES) Electronically Signed On 02-28-2019 9:16:01 CDT by Matthias Burgos MD
== END 2019-02-19 12:33 | disposition home or self-care (01) ==
LOC: ER 10:10
DX: R00.1 Bradycardia, unspecified (principal); M19.90 Unspecified osteoarthritis, unspecified site; K21.9 Gastro-esophageal reflux disease without esophagitis; E78.00 Pure hypercholesterolemia, unspecified; I10 Essential (primary) hypertension; Z86.73 Personal history of transient ischemic attack (TIA), and cerebral infarction without residual deficits; Z90.89 Acquired absence of other organs; Z90.49 Acquired absence of other specified parts of digestive tract; Z90.710 Acquired absence of both cervix and uterus; Z96.659 Presence of unspecified artificial knee joint; Z88.8 Allergy status to other drugs, medicaments and biological substances
CPT/HCPCS: 36415; 71045; 80053; 81001; 83690; 83735; 83880; 84439; 84443; 84484; 85025; 93005; 99285-25

== ENCOUNTER 2020-11-15 08:03 | Emergency (ER) | payer MEDICARE, OTHER ==
[~2020-11-15] VITALS: Ht 154.9 cm; Wt 82.3 kg
[~2020-11-15 08:03] MED LIST changes: +ALLO300T PO; +AMLO-187 PO; +DENO60DI SQ; +METH5TAB6 PO; +OLME40TA12 PO; +OMEP20TA63 PO; +WARF1TAB69 PO
--- NOTE | 2020-11-15 08:43 | PHYS DOC ---
Past Medical History Past Medical History: Arthritis, CVA, GERD, High Cholesterol, Hypertension, Stroke, Other Additional Past Medical Histor: DVT, gout Past Surgical History: Appendectomy, Cholecystectomy, Hysterectomy, Knee Replacement, Other Smoking Status: Never Smoker Alcohol Use: None Drug Use: None General Adult EDM: Chief Complaint: LOWER EXTREMITY SWELLING HPI: HPI: Patient is a 80 year old female who was [facility] of left lower extremity pain and swelling. Patient says he only had swelling and pain in her left lower extremity, but for the last few days the pain and swelling become more severe. Patient also have some skin breakdown on her left leg, her doctor saw her recently, prescribed some cream to put on her leg. Patient also was recently diagnosed with gout, she is on colchicine. Patient said she had a history of DVT in the past in her left lower extremity, she is on Coumadin. Abdominal pain, no chest pain, no trouble breathing. Patient said the pain radiated from back left Into the back of her left thigh area. Review of Systems: Review of Systems: Constitutional: Denies fever or chills. [] Eyes: Denies change in visual acuity. [] HENT: Denies nasal congestion or sore throat. [] Respiratory: Denies cough or shortness of breath. [] Cardiovascular: Denies chest pain or edema. [] GI: Denies abdominal pain, nausea, vomiting, bloody stools or diarrhea. [] : Denies dysuria. [] Musculoskeletal: Positive for left leg pain and swelling. Integument: Denies rash. [] Neurologic: Denies headache, focal weakness or sensory changes. [] Endocrine: Denies polyuria or polydipsia. [] Lymphatic: Denies swollen glands. [] Psychiatric: Denies depression or anxiety. [] Heart Score: C/O Chest Pain: N/A Risk Factors: Risk Factors: DM, Current or recent (<one month) smoker, HTN, HLP, family history of CAD, obesity. Risk Scores: Score 0 - 3: 2.5% MACE over next 6 weeks - Discharge Home Score 4 - 6: 20.3% MACE over next 6 weeks - Admit for Clinical Observation Score 7 - 10: 72.7% MACE over next 6 weeks - Early Invasive Strategies Allergies: Allergies: Allergies Coded Allergies Type Severity Reaction Last Updated Verified alendronate sodium Allergy Intermediate 02/03/19 Yes Physical Exam: PE: Constitutional: Well developed, well nourished, no acute distress, non-toxic appearance. [] HENT: Normocephalic, atraumatic, bilateral external ears normal, oropharynx moist, no oral exudates, nose normal. [] Eyes: PERRLA, EOMI, conjunctiva normal, no discharge. [] Neck: Normal range of motion, no tenderness, supple, no stridor. [] Cardiovascular:Heart rate regular rhythm, no murmur [] Lungs & Thorax: Bilateral breath sounds clear to auscultation [] Abdomen: Bowel sounds normal, soft, no tenderness, no masses, no pulsatile masses. [] Skin: Warm, dry, no erythema, no rash. [] Back: No tenderness, no CVA tenderness. [] Extremities: Left lower extremity is swollen, tender, with multiple small skin blisters, erythema. Neurologic: Alert and oriented X 3, normal motor function, normal sensory function, no focal deficits noted. [] Psychologic: Affect normal, judgement normal, mood normal. [] Current Patient Data: Labs: Laboratory Tests Test 11/15/20 09:36 11/15/20 10:20 White Blood Count 8.2 x10^3/uL Red Blood Count 3.05 x10^6/uL Hemoglobin 9.3 g/dL Hematocrit 28.4 % Mean Corpuscular Volume 93 fL Mean Corpuscular Hemoglobin 31 pg Mean Corpuscular Hemoglobin Concent 33 g/dL Red Cell Distribution Width 15.4 % Platelet Count 312 x10^3/uL Neutrophils (%) (Auto) 83 % Lymphocytes (%) (Auto) 10 % Monocytes (%) (Auto) 6 % Eosinophils (%) (Auto) 1 % Basophils (%) (Auto) 1 % Neutrophils # (Auto) 6.8 x10^3/uL Lymphocytes # (Auto) 0.8 x10^3/uL Monocytes # (Auto) 0.5 x10^3/uL Eosinophils # (Auto) 0.1 x10^3/uL Basophils # (Auto) 0.0 x10^3/uL Sodium Level 142 mmol/L Potassium Level 5.2 mmol/L Chloride Level 109 mmol/L Carbon Dioxide Level 21 mmol/L Anion Gap 12 Blood Urea Nitrogen 37 mg/dL Creatinine 1.4 mg/dL Estimated GFR (Cockcroft-Gault) 36.1 BUN/Creatinine Ratio 26 Glucose Level 106 mg/dL Calcium Level 6.5 mg/dL Magnesium Level 2.1 mg/dL Total Bilirubin 0.4 mg/dL Aspartate Amino Transf (AST/SGOT) 18 U/L Alanine Aminotransferase (ALT/SGPT) 19 U/L Alkaline Phosphatase 89 U/L HH-Sju-[id number]-Type Natriuretic Peptide 370 pg/mL Total Protein 6.5 g/dL Albumin 3.3 g/dL Albumin/Globulin Ratio 1.0 Urine Collection Type Unknown Urine Color Yellow Urine Clarity Clear Urine pH 5.5 Urine Specific [place] 1.015 Urine Protein Negative mg/dL Urine Glucose (UA) Negative mg/dL Urine Ketones (Stick) Negative mg/dL Urine Blood Negative Urine Nitrite Negative Urine Bilirubin Negative Urine Urobilinogen Dipstick 0.2 mg/dL Urine Leukocyte Esterase Negative Urine RBC 1-2 /HPF Urine WBC 1-4 /HPF Urine Squamous Epithelial Cells Many /LPF Urine Renal Epithelial Cells Occ /LPF Urine Bacteria Few /HPF Current Medications Medications (Trade) Dose Ordered Sig/Kehinde Route PRN Reason Start Time Stop Time Status Last Admin Dose Admin Calcium Gluconate (Calcium Gluconate) 1,000 mg 1X ONCE IVP 11/15/20 10:15 11/15/20 10:16 DC 11/15/20 10:41 Vital Signs: Vital Signs Date Time Temp Pulse Resp B/P (MAP) Pulse Ox O2 Delivery O2 Flow Rate FiO2 11/15/20 08:03 98.8 93 20 174/65 (101) 100 Room Air 98.8 EKG: EKG: [] Radiology/Procedures: Radiology/Procedures: [][facility] [address] [place] [address] IMAGING REPORT Signed PATIENT: LEOBARDO OMALLEY ACCOUNT: [id number] : 1940 LOCATION: ER AGE: 80 SEX: F EXAM STATUS: REG ER ORD. PHYSICIAN: MISA CHU DO REASON: LEFT LEG PAIN AND SWELLING, HX OF DVT PROCEDURE: VENOUS LOWER EXTREMITY LEFT Left Leg Venous Doppler Ultrasound, 11/15/2020 8:48 AM Indication: Left lower extremity pain and swelling Comparison: Bilateral lower extremity venous Doppler from 02/03/2019 Procedure: Real-time grayscale, color flow color duplex Doppler and spectral analysis are obtained with and without compression in the area of the common femoral vein, superficial femoral vein - femoral vein junction, main femoral vein (superficial femoral vein) and popliteal vein. Veins of the proximal calf are also imaged. Findings: There is normal duplex flow, color flow and compressibility of all visualized vein segments. No evidence of deep venous thrombus is present. There is mild soft tissue swelling in the popliteal fossa without abnormal fluid c ollection Impression: Negative venous Doppler of left lower extremity Electronically signed by: Bria Berrios MD (11/15/2020 9:13 AM) [facility] DICTATED and SIGNED BY: BRIA BERRIOS MD DATE: 11/15/20 [id number] Course & Med Decision Making: Course & Med Decision Making Pertinent Labs and Imaging studies reviewed. (See chart for details) Patient is an 80-year-old female who presented to ER due to left leg swelling and pain. Venous Doppler left leg did not show evidence of DVT. Patient lab is low on her calcium level, patient was given calcium supplement in the ER. [facility] be [facility] the [facility]. Dragon Disclaimer: Dragon Disclaimer: This electronic medical record was generated, in whole or in part, using a voice recognition dictation system. Departure Departure Impression: Primary Impression: Swelling of left lower extremity Additional Impression: Hypocalcemia Disposition: HOME / SELF CARE / HOMELESS Condition: STABLE Referrals: LOI MONIQUE (PCP) Follow up with your doctor on Tuesday for reevaluation. Patient Instructions: Hypocalcemia, Adult, Peripheral Edema Additional Instructions: Thank you for visiting our Emergency Department. We appreciate you trusting us with your care. If any additional problems come up don't hesitate to return to visit us. Please follow up with your primary care provider so they can plan additional care if needed and know about the problem that you had. If symptoms worsen come back to the Emergency Department. Any concerning symptoms that start such as chest pain, shortness of air, weakness or numbness on one side of the body, running high fevers or any other concerning symptoms return to the ER. MISA CHU DO Nov 15, 2020 08:43
--- NOTE | 2020-11-15 09:15 | RAD ---
Left Leg Venous Doppler Ultrasound, 11/15/2020 8:48 AM Indication: Left lower extremity pain and swelling Comparison: Bilateral lower extremity venous Doppler from 02/03/2019 Procedure: Real-time grayscale, color flow color duplex Doppler and spectral analysis are obtained w ith and without compression in the area of the common femoral vein, superficial femoral vein - femora l vein junction, main femoral vein (superficial femoral vein) and popliteal vein. Veins of the proxim al calf are also imaged. Findings: There is normal duplex flow, color flow and compressibility of all visualized vein segment s. No evidence of deep venous thrombus is present. There is mild soft tissue swelling in the poplitea l fossa without abnormal fluid collection Impression: Negative venous Doppler of left lower extremity Electronically signed by: Bria Berrios MD (11/15/2020 9:13 AM) [facility]
[2020-11-15 09:52] LABS: BASO % 1 % (0-3); EOS # 0.1 x10^3/uL (0.0-0.7); EOS % 1 % (0-3); HEMATOCRIT 28.4 % (36.0-47.0); HEMOGLOBIN 9.3 g/dL (12.0-15.5); LYMPH # 0.8 x10^3/uL (1.0-4.8); LYMPH % 10 % (24-48); MEAN CORPUSCULAR HEMOGLOBIN 31 pg (25-35); MEAN CORPUSCULAR HGB CONC 33 g/dL (31-37); MEAN CORPUSCULAR VOLUME 93 fL (79-100); MONO # 0.5 x10^3/uL (0.0-1.1); MONO % 6 % (0-9); NEUT # 6.8 x10^3/uL (1.8-7.7); NEUT % 83 % (31-73); PLATELET COUNT 312 x10^3/uL (140-400); RED BLOOD COUNT 3.05 x10^6/uL (3.50-5.40); RED CELL DISTRIBUTION WIDTH 15.4 % (11.5-14.5); WHITE BLOOD COUNT 8.2 x10^3/uL (4.0-11.0)
[2020-11-15 09:56] LABS: CALCIUM 6.5 mg/dL (8.5-10.1); CREATININE 1.4 mg/dL (0.6-1.0); GFR 36.1
[2020-11-15 09:57] LABS: POTASSIUM 5.2 mmol/L (3.5-5.1)
[2020-11-15 10:02] LABS: ALBUMIN 3.3 g/dL (3.4-5.0); MAGNESIUM 2.1 mg/dL (1.8-2.4); TOTAL BILIRUBIN 0.4 mg/dL (0.2-1.0); TOTAL PROTEIN 6.5 g/dL (6.4-8.2)
[2020-11-15] MEDS ORDERED: CALCIUM GLUCONATE 1,000 MG/10 ML VIAL. IVP ONE (10:15)
[2020-11-15 10:33] LABS: BILIRUBIN,URINE NEGATIVE (NEG); CLARITY,URINE CLEAR; COLOR,URINE YELLOW; NITRITE,URINE NEGATIVE (NEG); PH,URINE 5.5 (<5.0-8.0); PROTEIN,URINE NEGATIVE (NEG-TRACE); UROBILINOGEN,URINE 0.2 mg/dL (0.2 mg/dL)
[2020-11-15 10:43] LABS: BACTERIA,URINE FEW /HPF (0-FEW)
[2020-11-15 11:08] VITALS: BP 158/70
[2020-11-15 11:26] LABS: PROTHROMBIN TIME PATIENT 14.4 SEC (11.7-14.0)
== END 2020-11-15 12:20 | disposition home or self-care (01) ==
LOC: ER 08:03
DX: R22.42 Localized swelling, mass and lump, left lower limb (principal); E83.51 Hypocalcemia; K21.9 Gastro-esophageal reflux disease without esophagitis; I10 Essential (primary) hypertension; E78.00 Pure hypercholesterolemia, unspecified; Z86.73 Personal history of transient ischemic attack (TIA), and cerebral infarction without residual deficits
CPT/HCPCS: 36415; 80053; 81001; 83735; 83880; 85025; 85610; 93971; 96374; 99284; J0610